=== PATIENT | male | born 1965 | race African-American/Black ===

== ENCOUNTER → 2017-09-11 | Outpatient (CLI) | payer OTHER ==
[~2017-09-11] MED LIST: IOHEXOL 180 MG/ML 10 ML VIAL.; methylPREDNISolone ACETATE 40 MG/ML VIAL.; methylPREDNISolone ACETATE 80 MG/ML VIAL.
== END | disposition home or self-care (01) ==
LOC: PNCL 08:31
DX: M51.16 Intervertebral disc disorders with radiculopathy, lumbar region (principal); M47.26 Other spondylosis with radiculopathy, lumbar region; M16.0 Bilateral primary osteoarthritis of hip; M17.0 Bilateral primary osteoarthritis of knee; I10 Essential (primary) hypertension; E78.00 Pure hypercholesterolemia, unspecified; Z96.641 Presence of right artificial hip joint; F17.200 Nicotine dependence, unspecified, uncomplicated; Z98.42 Cataract extraction status, left eye; Z98.41 Cataract extraction status, right eye; Z98.890 Other specified postprocedural states; Z86.73 Personal history of transient ischemic attack (TIA), and cerebral infarction without residual deficits; Z88.0 Allergy status to penicillin; Z82.49 Family history of ischemic heart disease and other diseases of the circulatory system; Z83.3 Family history of diabetes mellitus
CPT/HCPCS: 62323; J1030; J1040; Q9965

== ENCOUNTER 2017-10-06 10:56 | Day surgery (SDC) | payer OTHER ==
[~2017-10-06 10:56] MED LIST changes: +CLINDAMYCIN 900MG PREMIX 50 ML IV; -IOHEXOL 180 MG/ML 10 ML VIAL.; +LIDOCAINE 1% PF 2 ML VIAL. ID; +MORPHINE SULFATE 4 MG/ML DISP.SYRIN. IV; +ONDANSETRON PF 4 MG/2 ML VIAL. IV; +PROCHLORPERAZINE 10 MG/2 ML VIAL. IV; +fentaNYL PF VIAL 100 MCG/2 ML VIAL IV; -methylPREDNISolone ACETATE 40 MG/ML VIAL.; -methylPREDNISolone ACETATE 80 MG/ML VIAL.
[2017-10-06] MEDS: IV RINGERS,LACTATED 1000ML 1,000 ML IV (11:27)
[2017-10-06] MEDS ORDERED: MIDAZOLAM HCL/PF 2 MG/2 ML VIAL. (12:10)
[2017-10-06] MEDS ORDERED: LIDOCAINE 2% PF Vial for OR 5 ML VIAL. (12:10)
[2017-10-06] MEDS ORDERED: PROPOFOL 50 ML IV (12:10)
[2017-10-06] MEDS ORDERED: BUPIVACAINE-EPI 0.25%-1:200000 50 ML VIAL. (12:38)
[2017-10-06] MEDS: VANCOMYCIN 2 GM in IV 1/2 NORMAL SALINE 500 ML IV (12:45)
[2017-10-06] MEDS: BUPIVACAINE 0.25% 50 ML VIAL. (14:20)
[2017-10-06] MEDS ORDERED: HYDROcodone/APAP 7.5/325MG 1 TAB TABLET (15:28)
[2017-10-06] MEDS: HYDROcodone/APAP 7.5/325MG 1 TAB TABLET PO (15:31)
== END 2017-10-06 16:29 | disposition home or self-care (01) ==
LOC: SURG 10:56
DX: G56.01 Carpal tunnel syndrome, right upper limb (principal); E78.00 Pure hypercholesterolemia, unspecified; M16.0 Bilateral primary osteoarthritis of hip; I10 Essential (primary) hypertension; E66.9 Obesity, unspecified; Z96.643 Presence of artificial hip joint, bilateral; Z87.891 Personal history of nicotine dependence; Z98.42 Cataract extraction status, left eye; Z98.41 Cataract extraction status, right eye; Z83.3 Family history of diabetes mellitus; Z82.49 Family history of ischemic heart disease and other diseases of the circulatory system; Z82.5 Family history of asthma and other chronic lower respiratory diseases; M17.0 Bilateral primary osteoarthritis of knee
CPT/HCPCS: 64721; A7015; J2250; J2704; J3370; J3490

== ENCOUNTER 2019-08-16 13:51 | Inpatient (IN) | payer OTHER ==
[~2019-08-16] VITALS: Ht 177.8 cm; Wt 117.8 kg
[~2019-08-16 13:51] MED LIST changes: +AMIT25TA PO; +AMLO10TA4 PO; +ASPI325T8 PO; +CELE200C PO; -CLINDAMYCIN 900MG PREMIX 50 ML IV; +HYDR-2145 PO; +HYDR-3165 PO; -LIDOCAINE 1% PF 2 ML VIAL. ID; +LOSA100T14 PO; -MORPHINE SULFATE 4 MG/ML DISP.SYRIN. IV; +MV-M1TAB8 PO; +NAPR-683 PO; -ONDANSETRON PF 4 MG/2 ML VIAL. IV; +OXYC1TAB19 PO; -PROCHLORPERAZINE 10 MG/2 ML VIAL. IV; +SIMV10TA15 PO; +TRAM50TA PO; +WARF-31 PO; +WARF-78 PO; -fentaNYL PF VIAL 100 MCG/2 ML VIAL IV
--- NOTE | 2019-08-16 14:25 | PHYS DOC ---
Past Medical History Smoking Status: Former Smoker (JESSICA SILVESTRE APRN) General Adult EDM: Chief Complaint: SHORTNESS OF BREATH HPI: HPI: Patient is a 54 year old male who presents with states today began coughing and then became short of breath. He states he then felt a sharp pain in his mid sternal chest that is continuous. He rates his pain an 8 out of 10. Patient is a former smoker, had a stroke 28 years ago with no deficits, hypertension. (JESSICA SILVESTRE APRN) Review of Systems: Review of Systems: Respiratory: cough or shortness of breath. [] Cardiovascular: Midsternal chest pain or denies edema. [] (JESSICA SILVESTRE CUSTOMER OPERATIONS SPECIALIST) Heart Score: HEART Score for Chest Pain: HEART Score for Chest Pain Response (Comments) Value History Slighlty/Non-Suspicious 0 ECG Normal 0 Age >45 - < 65 1 Risk Factors 1 or 2 Risk Factors 1 Troponin < Normal Limit 0 Total 2 Risk Factors: Risk Factors: DM, Current or recent (<one month) smoker, HTN, HLP, family history of CAD, obesity. Risk Scores: Score 0 - 3: 2.5% MACE over next 6 weeks - Discharge Home Score 4 - 6: 20.3% MACE over next 6 weeks - Admit for Clinical Observation Score 7 - 10: 72.7% MACE over next 6 weeks - Early Invasive Strategies (JESSICA SILVESTRE APRN) Allergies: Allergies: Allergies Coded Allergies Type Severity Reaction Last Updated Verified Penicillins Allergy Intermediate hives 10/06/17 Yes (JESSICA SILVESTRE APRN) Physical Exam: PE: Constitutional: Well developed, well nourished, no acute distress, non-toxic appearance. [] HENT: Normocephalic, atraumatic, bilateral external ears normal, oropharynx moist, no oral exudates, nose normal. [] Eyes: PERRLA, EOMI, conjunctiva normal, no discharge. [] Neck: Normal range of motion, no tenderness, supple, no stridor. [] Cardiovascular:Heart rate regular rhythm, no murmur [] Lungs & Thorax: Bilateral breath sounds clear on left and diminished on Right to auscultation [] Abdomen: Bowel sounds normal, soft, no tenderness, no masses, no pulsatile masses. [] Skin: Warm, dry, no erythema, no rash. [] Back: No tenderness, no CVA tenderness. [] Extremities: No tenderness, no cyanosis, no clubbing, ROM intact, no edema. [] Neurologic: Alert and oriented X 3, normal motor function, normal sensory function, no focal deficits noted. [] Psychologic: Affect normal, judgement normal, mood normal. Normal physical exam [] (JESSICA SILVESTRE APRN) EKG: EK and read by Dr Garcia Sinus tachycardia with no STEMI [] (JESSICA SILVESTRE APRN) Radiology/Procedures: Radiology/Procedures: [] Impression: [facility] [address] [place], [place] [id number] IMAGING REPORT Signed PATIENT: TONY COHEN ACCOUNT: [id number] : 1965 LOCATION: ER AGE: 54 SEX: M EXAM STATUS: REG ER ORD. PHYSICIAN: JESSICA SILVESTRE APRN REASON: soa PROCEDURE: PORTABLE CHEST 1V Single view of the chest. 08/16/2019 2:04 PM Indication: Shortness of air Comparison: Chest radiograph August 27, 2015 Findings: There is a large right-sided pneumothorax is total collapse of the right lung. Possible mild leftward mediastinal shift seen. No pleural effusion is seen. Heart size is normal. Impression: Large right pneumothorax. Follow-up radiograph following chest tube placement recommended Critical result called to the ER provider at 12:40 PM Electronically signed by: Massimo Tim MD (08/16/2019 2:41 PM) [id number] DICTATED and SIGNED BY: MASSIMO TIM MD DATE: 08/16/19 1441 [facility] [address] [place], [place] [id number] IMAGING REPORT Signed PATIENT: TONY COHEN ACCOUNT: [id number] : 1965 LOCATION: ER AGE: 54 SEX: M EXAM STATUS: REG ER ORD. PHYSICIAN: GARCIA,PETER T DO REASON: chest tube placement PROCEDURE: CHEST AP ONLY CHEST AP ONLY History: Pneumothorax. Chest tube placement. COMPARISON: 08/16/2019. FINDINGS: There has been reexpansion of the right lung with only a very small residual right apical pneumothorax. Minimal lucency at the right lung base, at least raising the question of a very small subpulmonic component of pneumothorax as well. Mild right lung base markings. Small caliber right chest tube is seen in the right lower chest laterally. Aorta is mildly ectatic/tortuous. Heart size not enlarged. No evidence of large effusion or consolidating airspace disease. IMPRESSION: 1. Reexpansion of the right lung with only a small residual right apical pneumothorax, and possible component of very small subpulmonic component of pneumothorax. Small caliber chest tube identified in the right lower lateral chest. 2. Mild markings at right lung base, most likely atelectasis. Electronically signed by: Kb Cummings MD (08/16/2019 3:34 PM) [facility] DICTATED and SIGNED BY: KB CUMMINGS MD DATE: 08/16/19 1534 (JESSICA SILVESTRE APRN) Radiology/Procedures: Indication: right side pneumothorax Consent: The patient provided consent for this procedure. Procedure: The patient was placed in an appropriate position. Local anesthesia over the insertion site was 1% lidocaine, 20 ml. An incision was made .5 cm at the right mid auxillary line at 5th intercostal space. Blunt dissection up and over the rib was performed until access was obtained into the pleural cavity. A 7 Liberian , 16 cm COOK CATHETER chest tube was placed and connected to PLEURIVAC. The tube was sutured in place and the site was covered with an occlusive dressing. All connections were banded. Breath sounds after the procedure were good equal both sides. A chest x-ray was obtained to evaluate placement, confirmed chest tube placement and reexpansion of the right lung. The patient tolerated the procedure well. Complications:none (EMELYN GARCIA DO) Course & Med Decision Making: Course & Med Decision Making Pertinent Labs and Imaging studies reviewed. (See chart for details) Alert and oriented. Speaks in full clear sentences. Patient is afebrile. He denies having a mucus producing cough. No extremity edema. Skin pink warm and dry. Ambulatory with a steady gait. Patient states the shortness of breath is more so when he is up and walking. Patient states office symptoms started today. Patient denies being around anybody else is been sick or traveling. His lung sounds are clear throughout but he is a little bit more diminished on the right upper lung lobes than on the left. Impression: Large right pneumothorax. Follow-up radiograph following chest tube placement recommended Dr. Garcia has placed a chest tube with a follow up xray done. IMPRESSION: 1. Reexpansion of the right lung with only a small residual right apical pneumothorax, and possible component of very small subpulmonic component of pneumothorax. Small caliber chest tube identified in the right lower lateral chest. 2. Mild markings at right lung base, most likely atelectasis. Patient to be admitted by hospitalists. Clay has spoken to Dr Valladares. [] (JESSICA SILVESTRE APRN) Dragon Disclaimer: Dragon Disclaimer: This electronic medical record was generated, in whole or in part, using a voice recognition dictation system. (JESSICA SILVESTRE APRN) Departure Departure Impression: Primary Impression: Pneumothorax on right Disposition: 09 ADMITTED INPATIENT Admitting Physician: CAROL (JESSICA SILVESTRE APRN) Condition: STABLE Referrals: DUSTIN MAHONEY MD (PCP) JESSICA SILVESTRE APRN Aug 16, 2019 14:25 EMELYN GARCIA DO Aug 16, 2019 16:16
--- NOTE | 2019-08-16 14:29 | EKG ---
[facility] [address] [place] [address] Test Date: 2019-08-16 Test Time: 14:11:59 Pat Name: TONY COHEN Department: Room: Gender: M Snow Maker: : 1965 Requested By: JESSICA SILVESTRE Order Number: [id number] Reading MD: Malcom Morrison MD Measurements Intervals [place] Rate: 112 P: 93 NV: 138 QRS: 89 QRSD: 106 T: 62 QT: 326 QTc: 447 Interpretive Statements SINUS TACHYCARDIA INCOMPLETE RIGHT BUNDLE BRANCH BLOCK Electronically Signed On 08-16-2019 14:41:01 CDT by Malcom Morrison MD
--- NOTE | 2019-08-16 14:44 | RAD ---
Single view of the chest. 08/16/2019 2:04 PM Indication: Shortness of air Comparison: Chest radiograph August 27, 2015 Findings: There is a large right-sided pneumothorax is total collapse of the right lung. Possible mild leftward mediastinal shift seen. No pleural effusion is seen. Heart size is normal. Impression: Large right pneumothorax. Follow-up radiograph following chest tube placement recommended Critical result called to the ER provider at 12:40 PM Electronically signed by: Massimo Isidro MD (08/16/2019 2:41 PM) [id number]
[2019-08-16] MEDS ORDERED: LIDOCAINE 1% PF 30 ML VIAL. INJ ONE (14:45)
[2019-08-16 15:05] LABS: INFLUENZA A PATIENT NEGATIVE (NEGATIVE); INFLUENZA B PATIENT NEGATIVE (NEGATIVE)
[2019-08-16 15:07] LABS: BASO % 1 % (0-3); EOS # 0.3 x10^3/uL (0.0-0.7); EOS % 5 % (0-3); HEMATOCRIT 46.8 % (39.0-53.0); HEMOGLOBIN 15.9 g/dL (13.0-17.5); LYMPH # 1.5 x10^3/uL (1.0-4.8); LYMPH % 27 % (24-48); MEAN CORPUSCULAR HEMOGLOBIN 30 pg (25-35); MEAN CORPUSCULAR HGB CONC 34 g/dL (31-37); MEAN CORPUSCULAR VOLUME 88 fL (79-100); MONO # 0.7 x10^3/uL (0.0-1.1); MONO % 12 % (0-9); NEUT % 55 % (31-73); PLATELET COUNT 263 x10^3/uL (140-400); RED BLOOD COUNT 5.35 x10^6/uL (4.30-5.70); RED CELL DISTRIBUTION WIDTH 14.7 % (11.5-14.5); WHITE BLOOD COUNT 5.5 x10^3/uL (4.0-11.0)
[2019-08-16 15:28] LABS: BILIRUBIN,URINE NEGATIVE (NEG); COLOR,URINE YELLOW; NITRITE,URINE NEGATIVE (NEG); PH,URINE 7.5 (<5.0-8.0); PROTEIN,URINE NEGATIVE (NEG-TRACE); UROBILINOGEN,URINE 0.2 mg/dL (0.2 mg/dL)
[2019-08-16 15:28] LABS: CALCIUM 9.4 mg/dL (8.5-10.1); GFR 94.2
[2019-08-16 15:33] LABS: ALBUMIN 4.2 g/dL (3.4-5.0); ALBUMIN/GLOBULIN RATIO 1.1 (1.0-1.7); TOTAL BILIRUBIN 0.5 mg/dL (0.2-1.0); TOTAL PROTEIN 8.1 g/dL (6.4-8.2)
--- NOTE | 2019-08-16 15:36 | RAD ---
CHEST AP ONLY History: Pneumothorax. Chest tube placement. COMPARISON: 08/16/2019. FINDINGS: There has been reexpansion of the right lung with only a very small residual right apical pneumothorax. Minimal lucency at the right lung base, at least raising the question of a very small subpulmonic component of pneumothorax as well. Mild right lung base markings. Small caliber right chest tube is seen in the right lower chest laterally. Aorta is mildly ectatic/tortuous. Heart size not enlarged. No evidence of large effusion or consolidating airspace disease. IMPRESSION: 1. Reexpansion of the right lung with only a small residual right apical pneumothorax, and possible component of very small subpulmonic component of pneumothorax. Small caliber chest tube identified in the right lower lateral chest. 2. Mild markings at right lung base, most likely atelectasis. Electronically signed by: bK Cummings MD (08/16/2019 3:34 PM) [facility]
[2019-08-16 15:39] LABS: CLARITY,URINE CLEAR
[2019-08-16 15:40] LABS: RBC,URINE 0 /HPF (0-2); WBC,URINE 0 /HPF (0-4)
[2019-08-16 15:41] LABS: BACTERIA,URINE 0 /HPF (0-FEW); SQUAMOUS EPITHELIAL CELL,UR OCC /LPF
[2019-08-16] MEDS ORDERED: ACETAMINOPHEN 325 MG TABLET. PO PRN (16:15)
[2019-08-16] MEDS ORDERED: fentaNYL PF VIAL 100 MCG/2 ML VIAL IV PRN (16:15)
[2019-08-16] MEDS ORDERED: ONDANSETRON PF 4 MG/2 ML VIAL. IV PRN (16:15)
[2019-08-16 17:40] VITALS: BP 147/94
[2019-08-16 19:00] VITALS: BP 137/85
--- NOTE | 2019-08-16 19:15 | NUR ---
Pt in bed assessment completed vss poc explained pt denied pain during time of assessment, poc explained call light in reach will resume care and continue to monitor pt. Call light in reach.
[2019-08-16] MEDS ORDERED: BRIN8DRO (19:29)
[2019-08-16] MEDS ORDERED: TIMO5DRO5 (19:29)
[2019-08-16] MEDS ORDERED: LATA2.5D3 (19:29)
[2019-08-16] MEDS ORDERED: HYDR25TA10 (19:29)
--- NOTE | 2019-08-16 21:19 | NUR ---
here to see pt orders received to restart home meds
[2019-08-16] MEDS ORDERED: ASPIRIN 325 MG TABLET PO PRN (21:30)
--- NOTE | 2019-08-16 21:34 | PDOC1 ---
History and Physical Date of Admission Date of Admission August 16, 2019 Identification/Chief Complaint Chief Complaint My chest hurts Source Source: Patient History of Present Illness History of Present Illness Patient is a 54-year-old gentleman with past medical history of hypertension and previous history of smoking who was in his usual state of health until today when he had a coughing spell with no history of recent viral infections he denies any fever no cough sputum production unfortunately he suffered this coughing spell for no apparent reason shortly after he developed right chest discomfort. The patient could not take a deep breath and his pain was quite exquisite reason he decided to come to the emergency department for further eval uation and treatment. He describes the pain as a sharp sensation 10 out of 10 intensity with no radiation to the back nor the jaw the patient did not associate this pain with exertion and there was no worsening or alleviating factors associated with it. The patient has been in his usual state of health and has not been in contact with sick people, he has not traveled outside the area he denies dietary transgressions no history of GERD no sputum production was reported either. He was found to have a pneumothorax in the emergency department and he had a chest tube placed immediately. This has relieved his symptoms and he seems to be in no acute and apparent respiratory distress at the time my evaluation. Patient was provided reassurance and the plan of care was explained detail to the best of my abilities. Past Medical History Cardiovascular: HTN Pulmonary: COPD Current Problem List Problem List Problems Medical Problems: (1) Pneumothorax on right Status: Acute Current Medications Current Medications Current Medications Medications (Trade) Dose Ordered Sig/Nicolás Start Time Stop Time Status Last Admin Dose Admin Acetaminophen (Tylenol) 650 mg PRN Q4HRS PRN 08/16/19 16:15 08/17/19 16:14 Amlodipine Besylate (Norvasc) 10 mg DAILY 08/17/19 09:00 UNV Aspirin (Jodi Aspirin) 650 mg Q12H PRN 08/16/19 21:30 UNV Fentanyl Citrate (Fentanyl 2ml Vial) 50 mcg PRN Q1HR PRN 08/16/19 16:15 08/17/19 16:14 Hydrochlorothiazide (Hydrodiuril) 25 mg DAILY 08/17/19 09:00 UNV Ketorolac Tromethamine (Toradol 15mg Vial) 15 mg PRN Q6HRS PRN 08/16/19 21:30 08/21/19 21:29 UNV Latanoprost (Xalatan) 2 drop HS 08/17/19 21:00 UNV Lidocaine HCl (Xylocaine 1% Pf 30ml Vial) 30 ml 1X ONCE 08/16/19 14:45 08/16/19 14:46 DC 08/16/19 15:20 30 ML Non-Formulary Medication (Brinzolamide/ Brimonid Tart (Simbrinza 1%-0.2% Eye Drops)) 0.2 % BID 08/17/19 09:00 UNV Non-Formulary Medication (Losartan Potassium ) 100 mg DAILY 08/17/19 09:00 UNV Ondansetron HCl (Zofran) 4 mg PRN Q8HRS PRN 08/16/19 16:15 08/17/19 16:14 Timolol Maleate (Timoptic 0.5% Ophth) 5 drop BID 08/17/19 09:00 UNV Allergies Allergies Allergies Coded Allergies Type Severity Reaction Last Updated Verified Penicillins Allergy Intermediate hives 10/06/17 Yes ROS Review of System CONSTITUTIONAL: No fever or chills EYES: No recent changes SKIN: No rash or itching CARDIOVASCULAR: No chest pain, syncope, palpitations, or edema RESPIRATORY: No SOB or cough GASTROINTESTINAL: No nausea, vomiting or abdominal pain NEUROLOGICAL: No headaches or weakness ENDOCRINE: No cold or heat intolerance GENITOURINARY: No urgency or frequency of urination MUSCULOSKELETAL: No back pain or joint pain LYMPHATICS: No enlarged lymph nodes PSYCHIATRIC: No anxiety or depression Physical Exam Physical Exam GEN.: No apparent distress. Alert and oriented. HEENT: Head is normocephalic, atraumatic NECK: Supple. LUNGS: Clear to auscultation. HEART: RRR, S1, S2 present. Peripheral pulses intact ABDOMEN: Soft, nontender. Positive bowel sounds. EXTREMITIES: Without any cyanosis. NEUROLOGIC: Normal speech, normal tone PSYCHIATRIC: Normal affect, normal mood. SKIN: No ulcerations Vitals Vitals Vital Signs Date Time Temp Pulse Resp B/P (MAP) Pulse Ox O2 Delivery O2 Flow Rate FiO2 08/16/19 19:00 98.1 83 16 137/85 (102) 99 Nasal Cannula 2.0 98.1 Labs Labs Laboratory Tests Test 08/16/19 14:38 08/16/19 14:45 08/16/19 15:20 Influenza Type A Antigen Negative (NEGATIVE) Influenza Type B Antigen Negative (NEGATIVE) White Blood Count 5.5 x10^3/uL (4.0-11.0) Red Blood Count 5.35 x10^6/uL (4.30-5.70) Hemoglobin 15.9 g/dL (13.0-17.5) Hematocrit 46.8 % (39.0-53.0) Mean Corpuscular Volume 88 fL (79-100) Mean Corpuscular Hemoglobin 30 pg (25-35) Mean Corpuscular Hemoglobin Concent 34 g/dL (31-37) Red Cell Distribution Width 14.7 % (11.5-14.5) Platelet Count 263 x10^3/uL (140-400) Neutrophils (%) (Auto) 55 % (31-73) Lymphocytes (%) (Auto) 27 % (24-48) Monocytes (%) (Auto) 12 % (0-9) Eosinophils (%) (Auto) 5 % (0-3) Basophils (%) (Auto) 1 % (0-3) Neutrophils # (Auto) 3.0 x10^3/uL (1.8-7.7) Lymphocytes # (Auto) 1.5 x10^3/uL (1.0-4.8) Monocytes # (Auto) 0.7 x10^3/uL (0.0-1.1) Eosinophils # (Auto) 0.3 x10^3/uL (0.0-0.7) Basophils # (Auto) 0.0 x10^3/uL (0.0-0.2) Sodium Level 135 mmol/L (136-145) Potassium Level 4.0 mmol/L (3.5-5.1) Chloride Level 98 mmol/L (98-107) Carbon Dioxide Level 28 mmol/L (21-32) Anion Gap 9 (6-14) Blood Urea Nitrogen 12 mg/dL (8-26) Creatinine 1.0 mg/dL (0.7-1.3) Estimated GFR (Cockcroft-Gault) 94.2 BUN/Creatinine Ratio 12 (6-20) Glucose Level 108 mg/dL (70-99) Calcium Level 9.4 mg/dL (8.5-10.1) Total Bilirubin 0.5 mg/dL (0.2-1.0) Aspartate Amino Transf (AST/SGOT) 27 U/L (15-37) Alanine Aminotransferase (ALT/SGPT) 35 U/L (16-63) Alkaline Phosphatase 59 U/L (46-116) Troponin I Quantitative < 0.017 ng/mL (0.000-0.055) HK-Hvn-L-Type Natriuretic Peptide 10 pg/mL (0-124) Total Protein 8.1 g/dL (6.4-8.2) Albumin 4.2 g/dL (3.4-5.0) Albumin/Globulin Ratio 1.1 (1.0-1.7) Urine Collection Type Unknown Urine Color Yellow Urine Clarity Clear Urine pH 7.5 (<5.0-8.0) Urine Specific Kohler 1.010 (1.000-1.030) Urine Protein Negative mg/dL (NEG-TRACE) Urine Glucose (UA) Negative mg/dL (NEG) Urine Ketones (Stick) Negative mg/dL (NEG) Urine Blood Negative (NEG) Urine Nitrite Negative (NEG) Urine Bilirubin Negative (NEG) Urine Urobilinogen Dipstick 0.2 mg/dL (0.2 mg/dL) Urine Leukocyte Esterase Negative (NEG) Urine RBC 0 /HPF (0-2) Urine WBC 0 /HPF (0-4) Urine Squamous Epithelial Cells Occ /LPF Urine Bacteria 0 /HPF (0-FEW) Laboratory Tests Test 08/16/19 14:38 08/16/19 14:45 08/16/19 15:20 Influenza Type A Antigen Negative (NEGATIVE) Influenza Type B Antigen Negative (NEGATIVE) White Blood Count 5.5 x10^3/uL (4.0-11.0) Red Blood Count 5.35 x10^6/uL (4.30-5.70) Hemoglobin 15.9 g/dL (13.0-17.5) Hematocrit 46.8 % (39.0-53.0) Mean Corpuscular Volume 88 fL (79-100) Mean Corpuscular Hemoglobin 30 pg (25-35) Mean Corpuscular Hemoglobin Concent 34 g/dL (31-37) Red Cell Distribution Width 14.7 % (11.5-14.5) Platelet Count 263 x10^3/uL (140-400) Neutrophils (%) (Auto) 55 % (31-73) Lymphocytes (%) (Auto) 27 % (24-48) Monocytes (%) (Auto) 12 % (0-9) Eosinophils (%) (Auto) 5 % (0-3) Basophils (%) (Auto) 1 % (0-3) Neutrophils # (Auto) 3.0 x10^3/uL (1.8-7.7) Lymphocytes # (Auto) 1.5 x10^3/uL (1.0-4.8) Monocytes # (Auto) 0.7 x10^3/uL (0.0-1.1) Eosinophils # (Auto) 0.3 x10^3/uL (0.0-0.7) Basophils # (Auto) 0.0 x10^3/uL (0.0-0.2) Sodium Level 135 mmol/L (136-145) Potassium Level 4.0 mmol/L (3.5-5.1) Chloride Level 98 mmol/L (98-107) Carbon Dioxide Level 28 mmol/L (21-32) Anion Gap 9 (6-14) Blood Urea Nitrogen 12 mg/dL (8-26) Creatinine 1.0 mg/dL (0.7-1.3) Estimated GFR (Cockcroft-Gault) 94.2 BUN/Creatinine Ratio 12 (6-20) Glucose Level 108 mg/dL (70-99) Calcium Level 9.4 mg/dL (8.5-10.1) Total Bilirubin 0.5 mg/dL (0.2-1.0) Aspartate Amino Transf (AST/SGOT) 27 U/L (15-37) Alanine Aminotransferase (ALT/SGPT) 35 U/L (16-63) Alkaline Phosphatase 59 U/L (46-116) Troponin I Quantitative < 0.017 ng/mL (0.000-0.055) SV-Fxr-L-Type Natriuretic Peptide 10 pg/mL (0-124) Total Protein 8.1 g/dL (6.4-8.2) Albumin 4.2 g/dL (3.4-5.0) Albumin/Globulin Ratio 1.1 (1.0-1.7) Urine Collection Type Unknown Urine Color Yellow Urine Clarity Clear Urine pH 7.5 (<5.0-8.0) Urine Specific Kohler 1.010 (1.000-1.030) Urine Protein Negative mg/dL (NEG-TRACE) Urine Glucose (UA) Negative mg/dL (NEG) Urine Ketones (Stick) Negative mg/dL (NEG) Urine Blood Negative (NEG) Urine Nitrite Negative (NEG) Urine Bilirubin Negative (NEG) Urine Urobilinogen Dipstick 0.2 mg/dL (0.2 mg/dL) Urine Leukocyte Esterase Negative (NEG) Urine RBC 0 /HPF (0-2) Urine WBC 0 /HPF (0-4) Urine Squamous Epithelial Cells Occ /LPF Urine Bacteria 0 /HPF (0-FEW) Images Images [facility] [address] [place] [address] IMAGING REPORT Signed PATIENT: TONY COHEN ACCOUNT: [id number] : 1965 LOCATION: ER AGE: 54 SEX: M EXAM STATUS: REG ER ORD. PHYSICIAN: JESSICA SILVESTRE APRN REASON: soa PROCEDURE: PORTABLE CHEST 1V Single view of the chest. 08/16/2019 2:04 PM Indication: Shortness of air Comparison: Chest radiograph August 27, 2015 Findings: There is a large right-sided pneumothorax is total collapse of the right lung. Possible mild leftward mediastinal shift seen. No pleural effusion is seen. Heart size is normal. Impression: Large right pneumothorax. Follow-up radiograph following chest tube placement recommended Critical result called to the ER provider at 12:40 PM Electronically signed by: Massimo Tim MD (08/16/2019 2:41 PM) [id number] DICTATED and SIGNED BY: MASSIMO TIM MD DATE: 08/16/19 1441 [facility] [address] [place] [address] IMAGING REPORT Signed PATIENT: TONY COHEN ACCOUNT: [id number] : 1965 LOCATION: ER AGE: 54 SEX: M EXAM STATUS: REG ER ORD. PHYSICIAN: EMELYN GARCIA DO REASON: chest tube placement PROCEDURE: CHEST AP ONLY CHEST AP ONLY History: Pneumothorax. Chest tube placement. COMPARISON: 08/16/2019. FINDINGS: There has been reexpansion of the right lung with only a very small residual right apical pneumothorax. Minimal lucency at the right lung base, at least raising the question of a very small subpulmonic component of pneumothorax as well. Mild right lung base markings. Small caliber right chest tube is seen in the right lower chest laterally. Aorta is mildly ectatic/tortuous. Heart size not enlarged. No evidence of large effusion or consolidating airspace disease. IMPRESSION: 1. Reexpansion of the right lung with only a small residual right apical pneumothorax, and possible component of very small subpulmonic component of pneumothorax. Small caliber chest tube identified in the right lower lateral chest. 2. Mild markings at right lung base, most likely atelectasis. Electronically signed by: Kb Cummings MD (08/16/2019 3:34 PM) [facility] VTE Prophylaxis Ordered VTE Prophylaxis Devices: Yes VTE Pharmacological Prophylaxi: No Assessment/Plan Assessment/Plan Spontaneous pneumothorax Essential hypertension History of tobacco abuse COPD? Plan: Continue with chest tube management Resume home medication Pulmonary underwriting consultant for tube management in the a.m. Further recommendations based on the clinical course DVT prophylaxis with CHARLES Grajeda MD Aug 16, 2019 21:34
[2019-08-16 22:12] VITALS: BP 151/85
[2019-08-16] MEDS: TIMOLOL 0.5% OPHTH SOLUTION 5ML BOTTLE. OU SCH (22:13)
[2019-08-16] MEDS: LATANOPROST 0.005% OPHTH SOLUTION 2.5ML BOTTLE. OU SCH (22:14)
[2019-08-17] MEDS: KETOROLAC 15 MG/ML VIAL. IVP PRN (00:53)
[2019-08-17 03:11] VITALS: BP 135/73
[2019-08-17 07:00] VITALS: BP 134/83
[2019-08-17] MEDS: hydroCHLOROthiazide 25 MG TABLET PO SCH (09:08)
[2019-08-17] MEDS: amLODIPine BESYLATE 10 MG TABLET PO SCH (09:08)
[2019-08-17] MEDS: TIMOLOL 0.5% OPHTH SOLUTION 5ML BOTTLE. OU SCH ×2 (09:09→21:38)
[2019-08-17] MEDS: LOSARTAN POTASSIUM 50 MG TABLET. PO SCH (09:14)
[2019-08-17] MEDS: BRIMONIDINE 0.2% OPHTH SOLUTION 5ML BOTTLE. OU SCH ×2 (10:17→21:36)
[2019-08-17 10:55] VITALS: BP 129/81
--- NOTE | 2019-08-17 14:19 | NUR ---
SS following for discharge planning. SS reviewed pt chart and discussed with RN. Pt is from home and is currently requiring oxygen. SS will continue to follow for discharge planning.
[2019-08-17 15:00] VITALS: BP 122/74
--- NOTE | 2019-08-17 15:10 | RAD ---
EXAM: Chest, single view. HISTORY: Pneumothorax. COMPARISON: 08/16/2019. FINDINGS: A frontal view of the chest obtained. There has been no significant change in a small right apical pneumothorax. There is a thoracostomy tube overlying the right mid thorax, unchanged in position. No pleural effusion is seen. There is no consolidation. The heart is normal in size. IMPRESSION: No significant change in a small right pneumothorax status post pleural catheter placement. Electronically signed by: Acacia Miller MD (08/17/2019 1:29 PM) [id number]
--- NOTE | 2019-08-17 16:09 | PDOC ---
PULMONARY PROGRESS NOTES Vitals Vital Signs Date Time Temp Pulse Resp B/P (MAP) Pulse Ox O2 Delivery O2 Flow Rate FiO2 08/17/19 15:00 97.7 68 18 122/74 (90) 96 Nasal Cannula 2.0 97.7 Labs Laboratory Tests Test 08/16/19 14:38 08/16/19 14:45 08/16/19 15:20 Influenza Type A Antigen Negative (NEGATIVE) Influenza Type B Antigen Negative (NEGATIVE) White Blood Count 5.5 x10^3/uL (4.0-11.0) Red Blood Count 5.35 x10^6/uL (4.30-5.70) Hemoglobin 15.9 g/dL (13.0-17.5) Hematocrit 46.8 % (39.0-53.0) Mean Corpuscular Volume 88 fL (79-100) Mean Corpuscular Hemoglobin 30 pg (25-35) Mean Corpuscular Hemoglobin Concent 34 g/dL (31-37) Red Cell Distribution Width 14.7 % (11.5-14.5) Platelet Count 263 x10^3/uL (140-400) Neutrophils (%) (Auto) 55 % (31-73) Lymphocytes (%) (Auto) 27 % (24-48) Monocytes (%) (Auto) 12 % (0-9) Eosinophils (%) (Auto) 5 % (0-3) Basophils (%) (Auto) 1 % (0-3) Neutrophils # (Auto) 3.0 x10^3/uL (1.8-7.7) Lymphocytes # (Auto) 1.5 x10^3/uL (1.0-4.8) Monocytes # (Auto) 0.7 x10^3/uL (0.0-1.1) Eosinophils # (Auto) 0.3 x10^3/uL (0.0-0.7) Basophils # (Auto) 0.0 x10^3/uL (0.0-0.2) Sodium Level 135 mmol/L (136-145) Potassium Level 4.0 mmol/L (3.5-5.1) Chloride Level 98 mmol/L (98-107) Carbon Dioxide Level 28 mmol/L (21-32) Anion Gap 9 (6-14) Blood Urea Nitrogen 12 mg/dL (8-26) Creatinine 1.0 mg/dL (0.7-1.3) Estimated GFR (Cockcroft-Gault) 94.2 BUN/Creatinine Ratio 12 (6-20) Glucose Level 108 mg/dL (70-99) Calcium Level 9.4 mg/dL (8.5-10.1) Total Bilirubin 0.5 mg/dL (0.2-1.0) Aspartate Amino Transf (AST/SGOT) 27 U/L (15-37) Alanine Aminotransferase (ALT/SGPT) 35 U/L (16-63) Alkaline Phosphatase 59 U/L (46-116) Troponin I Quantitative < 0.017 ng/mL (0.000-0.055) OW-Zju-[id number]-Type Natriuretic Peptide 10 pg/mL (0-124) Total Protein 8.1 g/dL (6.4-8.2) Albumin 4.2 g/dL (3.4-5.0) Albumin/Globulin Ratio 1.1 (1.0-1.7) Urine Collection Type Unknown Urine Color Yellow Urine Clarity Clear Urine pH 7.5 (<5.0-8.0) Urine Specific [place] 1.010 (1.000-1.030) Urine Protein Negative mg/dL (NEG-TRACE) Urine Glucose (UA) Negative mg/dL (NEG) Urine Ketones (Stick) Negative mg/dL (NEG) Urine Blood Negative (NEG) Urine Nitrite Negative (NEG) Urine Bilirubin Negative (NEG) Urine Urobilinogen Dipstick 0.2 mg/dL (0.2 mg/dL) Urine Leukocyte Esterase Negative (NEG) Urine RBC 0 /HPF (0-2) Urine WBC 0 /HPF (0-4) Urine Squamous Epithelial Cells Occ /LPF Urine Bacteria 0 /HPF (0-FEW) Medications Active Scripts Medications Dose Route/Sig Max Daily Dose Days Date Category Dose Instructions Timolol Maleate 5 Ml Drops 5 BID 08/16/19 Reported Simbrinza 1%-0.2% Eye Drops (Brinzolamide/Brimonid Tart) 8 Ml Drops.susp 0.2 BID 08/16/19 Reported Hydrochlorothiazide 25 Mg Tablet 25 DAILY 08/16/19 Reported Latanoprost 2.5 Ml Drops 2.5 HS 08/16/19 Reported Aspirin 325 Mg Tablet 650 Mg PO PRN 09/11/17 Reported Losartan Potassium 100 Mg Tablet 100 Mg PO DAILY 05/02/13 Reported LAST DOSE GIVEN: DATE: 09/14/15 TIME: 09 AM NEXT DOSE DUE: DATE: 09/15/15 TIME: 09 AM Norvasc (Amlodipine Besylate) 10 Mg Tablet 10 Mg PO DAILY 05/02/13 Reported LAST DOSE GIVEN: DATE: 09/14/15 TIME: 09 AM NEXT DOSE DUE: DATE: 09/15/15 TIME: 09 AM Impression . FULL NOTE DICTATED PTX WILL CONTINUE THE SAME, air leak present on wall suction Repeat chest x-ray in the [facility] CHRISSIE VARELA MD Aug 17, 2019 16:09
--- NOTE | 2019-08-17 16:33 | PDOC ---
PROGRESS NOTES Chief Complaint Chief Complaint Spontaneous pneumothorax Essential hypertension History of tobacco abuse COPD? Plan: Resume home medication Pulmonary life skills consultant for tube management repeat x ray in am still has air leak Further recommendations based on the clinical course DVT prophylaxis with SCDs History of Present Illness History of Present Illness No acute events reported overnight, case discussed with nursing staff patient in no acute distress no complaints during my visit Vitals Vitals Vital Signs Date Time Temp Pulse Resp B/P (MAP) Pulse Ox O2 Delivery O2 Flow Rate FiO2 08/17/19 15:00 97.7 68 18 122/74 (90) 96 Nasal Cannula 2.0 97.7 Physical Exam Physical Exam GEN.: No apparent distress. Alert and oriented. HEENT: Head is normocephalic, atraumatic NECK: Supple. LUNGS: Clear to auscultation. HEART: RRR, S1, S2 present. Peripheral pulses intact ABDOMEN: Soft, nontender. Positive bowel sounds. EXTREMITIES: Without any cyanosis. NEUROLOGIC: Normal speech, normal tone PSYCHIATRIC: Normal affect, normal mood. SKIN: No ulcerations Assessment and Plan Assessmemt and Plan Problems Medical Problems: (1) Pneumothorax on right Status: Acute Comment Review of Relevant I have reviewed the following items kirsten (where applicable) has been applied. Labs Laboratory Tests Test 08/16/19 14:38 08/16/19 14:45 08/16/19 15:20 Influenza Type A Antigen Negative (NEGATIVE) Influenza Type B Antigen Negative (NEGATIVE) White Blood Count 5.5 x10^3/uL (4.0-11.0) Red Blood Count 5.35 x10^6/uL (4.30-5.70) Hemoglobin 15.9 g/dL (13.0-17.5) Hematocrit 46.8 % (39.0-53.0) Mean Corpuscular Volume 88 fL (79-100) Mean Corpuscular Hemoglobin 30 pg (25-35) Mean Corpuscular Hemoglobin Concent 34 g/dL (31-37) Red Cell Distribution Width 14.7 % (11.5-14.5) Platelet Count 263 x10^3/uL (140-400) Neutrophils (%) (Auto) 55 % (31-73) Lymphocytes (%) (Auto) 27 % (24-48) Monocytes (%) (Auto) 12 % (0-9) Eosinophils (%) (Auto) 5 % (0-3) Basophils (%) (Auto) 1 % (0-3) Neutrophils # (Auto) 3.0 x10^3/uL (1.8-7.7) Lymphocytes # (Auto) 1.5 x10^3/uL (1.0-4.8) Monocytes # (Auto) 0.7 x10^3/uL (0.0-1.1) Eosinophils # (Auto) 0.3 x10^3/uL (0.0-0.7) Basophils # (Auto) 0.0 x10^3/uL (0.0-0.2) Sodium Level 135 mmol/L (136-145) Potassium Level 4.0 mmol/L (3.5-5.1) Chloride Level 98 mmol/L (98-107) Carbon Dioxide Level 28 mmol/L (21-32) Anion Gap 9 (6-14) Blood Urea Nitrogen 12 mg/dL (8-26) Creatinine 1.0 mg/dL (0.7-1.3) Estimated GFR (Cockcroft-Gault) 94.2 BUN/Creatinine Ratio 12 (6-20) Glucose Level 108 mg/dL (70-99) Calcium Level 9.4 mg/dL (8.5-10.1) Total Bilirubin 0.5 mg/dL (0.2-1.0) Aspartate Amino Transf (AST/SGOT) 27 U/L (15-37) Alanine Aminotransferase (ALT/SGPT) 35 U/L (16-63) Alkaline Phosphatase 59 U/L (46-116) Troponin I Quantitative < 0.017 ng/mL (0.000-0.055) FI-[id number]-Type Natriuretic Peptide 10 pg/mL (0-124) Total Protein 8.1 g/dL (6.4-8.2) Albumin 4.2 g/dL (3.4-5.0) Albumin/Globulin Ratio 1.1 (1.0-1.7) Urine Collection Type Unknown Urine Color Yellow Urine Clarity Clear Urine pH 7.5 (<5.0-8.0) Urine Specific [place] 1.010 (1.000-1.030) Urine Protein Negative mg/dL (NEG-TRACE) Urine Glucose (UA) Negative mg/dL (NEG) Urine Ketones (Stick) Negative mg/dL (NEG) Urine Blood Negative (NEG) Urine Nitrite Negative (NEG) Urine Bilirubin Negative (NEG) Urine Urobilinogen Dipstick 0.2 mg/dL (0.2 mg/dL) Urine Leukocyte Esterase Negative (NEG) Urine RBC 0 /HPF (0-2) Urine WBC 0 /HPF (0-4) Urine Squamous Epithelial Cells Occ /LPF Urine Bacteria 0 /HPF (0-FEW) Medications Current Medications Lidocaine HCl (Xylocaine 1% Pf 30ml Vial) 30 ml 1X ONCE INJ Last administered on 08/16/19at 15:20; Start 08/16/19 at 14:45; Stop 08/16/19 at 14:46; Status DC Ondansetron HCl (Zofran) 4 mg PRN Q8HRS PRN IV NAUSEA/VOMITING; Start 08/16/19 at 16:15; Stop 08/17/19 at 16:14; Status DC Fentanyl Citrate (Fentanyl 2ml Vial) 50 mcg PRN Q1HR PRN IV PAIN; Start 08/16/19 at 16:15; Stop 08/17/19 at 16:14; Status DC Acetaminophen (Tylenol) 650 mg PRN Q4HRS PRN PO FEVER; Start 08/16/19 at 16:15; Stop 08/17/19 at 16:14; Status DC Amlodipine Besylate (Norvasc) 10 mg DAILY PO Last administered on 08/17/19at 09:08; Start 08/17/19 at 09:00 Aspirin (Jodi Aspirin) 650 mg PRN Q12HRS PRN PO INFLAMATION; Start 08/16/19 at 21:30 Hydrochlorothiazide (Hydrodiuril) 25 mg DAILY PO Last administered on 08/17/19at 09:08; Start 08/17/19 at 09:00 Latanoprost (Xalatan) 2 drop HS OU Last administered on 08/16/19at 22:14; Start 08/16/19 at 22:00 Timolol Maleate (Timoptic 0.5% [facility]) 5 drop BID OU Last administered on 08/17/19at 09:09; Start 08/16/19 at 22:00 Brimonidine Tartrate (Alphagan) 1 drop BID OU Last administered on 08/17/19at 10:17; Start 08/17/19 at 10:30 Losartan Potassium (Cozaar) 100 mg DAILY PO Last administered on 08/17/19at 09:14; Start 08/17/19 at 09:00 Ketorolac Tromethamine (Toradol 15mg Vial) 15 mg PRN Q6HRS PRN IVP PAIN Last administered on 08/17/19at 00:53; Start 08/16/19 at 21:30; Stop 08/21/19 at 21:29 Dorzolamide HCl (Trusopt) 1 drop BID OU ; Start 08/17/19 at 21:00 Active Scripts Active Reported Timolol Maleate 5 Ml Drops 5 BID Simbrinza 1%-0.2% Eye Drops (Brinzolamide/Brimonid Tart) 8 Ml Drops.susp 0.2 BID Hydrochlorothiazide 25 Mg Tablet 25 DAILY Latanoprost 2.5 Ml Drops 2.5 HS Aspirin 325 Mg Tablet 650 Mg PO PRN Losartan Potassium 100 Mg Tablet 100 Mg PO DAILY LAST DOSE GIVEN: DATE: 09/14/15 TIME: 09 AM NEXT DOSE DUE: DATE: 09/15/15 TIME: 09 AM Norvasc (Amlodipine Besylate) 10 Mg Tablet 10 Mg PO DAILY LAST DOSE GIVEN: DATE: 09/14/15 TIME: 09 AM NEXT DOSE DUE: DATE: 09/15/15 TIME: 09 AM Vitals/I & O Vital Sign - Last 24 Hours 08/16/19 08/16/19 08/16/19 08/16/19 16:53 17:30 17:40 19:00 Temp 98.7 98.1 98.7 98.1 Pulse 80 76 83 Resp 18 20 16 B/P (MAP) 131/76 (94) 147/94 (111) 137/85 (102) Pulse Ox 97 98 99 O2 Delivery Nasal Cannula Nasal Cannula Nasal Cannula Nasal Cannula O2 Flow Rate 2.0 2.0 2.0 2.0 08/16/19 08/16/19 08/17/19 08/17/19 19:15 22:12 03:11 07:00 Temp 97.6 98.4 97.7 97.6 98.4 97.7 Pulse 83 70 69 Resp 16 18 18 B/P (MAP) 151/85 (107) 135/73 (93) 134/83 (100) Pulse Ox 97 93 96 O2 Delivery Nasal Cannula Nasal Cannula Nasal Cannula Nasal Cannula O2 Flow Rate 2.0 2.0 2.0 2.0 08/17/19 08/17/19 08/17/19 08/17/19 08:00 09:08 09:14 10:55 Temp 97.4 97.4 Pulse 69 69 92 Resp 18 B/P (MAP) 134/83 134/83 129/81 (97) Pulse Ox 97 O2 Delivery Nasal Cannula Nasal Cannula O2 Flow Rate 2.0 2.0 08/17/19 15:00 Temp 97.7 97.7 Pulse 68 Resp 18 B/P (MAP) 122/74 (90) Pulse Ox 96 O2 Delivery Nasal Cannula O2 Flow Rate 2.0 Intake and Output 08/16/19 08/16/19 08/17/19 15:00 23:00 07:00 Intake Total 300 ml Output Total 1100 ml 615 ml Balance -800 ml -615 ml CHARLES DAY MD Aug 17, 2019 16:33
--- NOTE | 2019-08-17 17:01 | CONS ---
DATE OF CONSULTATION: 08/17/2019 ATTENDING PHYSICIAN: CHARLES VALLADARES MD REASON FOR CONSULTATION: The patient seen in pulmonary consultation at the request of Dr. Valladares for pneumothorax. HISTORY OF PRESENT ILLNESS: The patient is a 54-year-old that smoked and quit approximately 20 years ago, presented with acute onset of shortness of breath; he coughed and then felt like he had chest discomfort. He presented to the Emergency Room. Chest x-ray was obtained revealing a large sided pneumothorax. Chest tube was placed. I reviewed the chest x-ray. Post chest tube placement, there was a small right apical pneumothorax. PAST MEDICAL HISTORY: Hypertension, COPD. MEDICATION: List was reviewed. ALLERGIES: PENICILLIN. SOCIAL HISTORY: He works as a automobile mechanic. He is currently not smoking. REVIEW OF SYSTEMS: As indicated above, otherwise, a 10-point system was reviewed and negative. FAMILY HISTORY: No family history of lung disorders. PHYSICAL EXAMINATION: VITAL SIGNS: Stable. O2 saturation greater than 92%, currently on room air. HEENT: Eyes, the sclerae were nonicteric. NECK: Jugular venous distention was not elevated. No lymphadenopathy. CHEST: Full expansion. LUNGS: Adequate air flow with no wheezes. CARDIOVASCULAR: Regular rate and rhythm with S1, S2, no S3. ABDOMEN: Soft, nontender, nondistended. EXTREMITIES: No clubbing, cyanosis or edema. LABORATORY DATA: Reviewed. White count was normal. Hemoglobin and hematocrit were noted. Electrolytes were noted. Serology for influenza was negative. IMPRESSION: 1. Spontaneous pneumothorax. 2. Chronic obstructive pulmonary disease. 3. Tobacco dependence, in remission. 4. Hypertension. PLAN: 1. Repeat chest x-ray revealed small apical pneumothorax, the patient continues to have air leak on wall suction. We will continue wall suctions for now. 2. Chest tube, once air leak on wall function resolves. 3. CT chest. I do appreciate the privilege in sharing in the patient's care. CHRISSIE VARELA MD DR: TIFFANIE/diana JOB#: [id number] / [id number]
[2019-08-17 19:55] VITALS: BP 124/77
--- NOTE | 2019-08-17 19:55 | NUR ---
Pt in bed assessment completed vss poc explained pt denied pain will resume care.Call light in reach.
[2019-08-17] MEDS: DORZOLAMIDE 2% OPHTH SOLUTION 10ML BOTTLE. OU SCH (21:36)
[2019-08-17] MEDS: LATANOPROST 0.005% OPHTH SOLUTION 2.5ML BOTTLE. OU SCH (21:38)
[2019-08-17 23:00] VITALS: BP 139/74
[2019-08-18 03:00] VITALS: BP 111/79
[2019-08-18 07:48] VITALS: BP 123/90
--- NOTE | 2019-08-18 08:17 | RAD ---
PORTABLE CHEST 1V History: Pneumothorax. Comparison: August 16 and August 16, 2019. Findings: Small right apical pneumothorax, unchanged. Stable right lateral chest tube. No consolidation. No pleural effusion. Normal heart size. Impression: 1. Small right pneumothorax, unchanged. Stable right chest tube. Electronically signed by: Eldon Draper DO (08/18/2019 8:14 AM) [id number]
[2019-08-18] MEDS: BRIMONIDINE 0.2% OPHTH SOLUTION 5ML BOTTLE. OU SCH ×2 (09:10→21:25)
[2019-08-18] MEDS: LOSARTAN POTASSIUM 50 MG TABLET. PO SCH (09:10)
[2019-08-18] MEDS: amLODIPine BESYLATE 10 MG TABLET PO SCH (09:10)
[2019-08-18] MEDS: DORZOLAMIDE 2% OPHTH SOLUTION 10ML BOTTLE. OU SCH ×2 (09:11→21:25)
[2019-08-18] MEDS: hydroCHLOROthiazide 25 MG TABLET PO SCH (09:12)
[2019-08-18] MEDS: TIMOLOL 0.5% OPHTH SOLUTION 5ML BOTTLE. OU SCH ×2 (09:12→21:26)
--- NOTE | 2019-08-18 09:41 | PDOC ---
PULMONARY PROGRESS NOTES Subjective Patient with no increasing shortness of air. No chest pain Vitals Vital Signs Date Time Temp Pulse Resp B/P (MAP) Pulse Ox O2 Delivery O2 Flow Rate FiO2 08/18/19 09:10 69 123/90 08/18/19 07:48 97.9 16 95 Nasal Cannula 2.0 97.9 ROS: No Nausea, No Chest Pain, No Abdominal Pain, No Increase Cough General: Alert Lungs: Clear Cardiovascular: S1, S2 Abdomen: Soft Neuro Exam: Alert Extremities: No Edema Skin: Warm Labs Laboratory Tests Test 08/16/19 14:38 08/16/19 14:45 08/16/19 15:20 Influenza Type A Antigen Negative (NEGATIVE) Influenza Type B Antigen Negative (NEGATIVE) White Blood Count 5.5 x10^3/uL (4.0-11.0) Red Blood Count 5.35 x10^6/uL (4.30-5.70) Hemoglobin 15.9 g/dL (13.0-17.5) Hematocrit 46.8 % (39.0-53.0) Mean Corpuscular Volume 88 fL (79-100) Mean Corpuscular Hemoglobin 30 pg (25-35) Mean Corpuscular Hemoglobin Concent 34 g/dL (31-37) Red Cell Distribution Width 14.7 % (11.5-14.5) Platelet Count 263 x10^3/uL (140-400) Neutrophils (%) (Auto) 55 % (31-73) Lymphocytes (%) (Auto) 27 % (24-48) Monocytes (%) (Auto) 12 % (0-9) Eosinophils (%) (Auto) 5 % (0-3) Basophils (%) (Auto) 1 % (0-3) Neutrophils # (Auto) 3.0 x10^3/uL (1.8-7.7) Lymphocytes # (Auto) 1.5 x10^3/uL (1.0-4.8) Monocytes # (Auto) 0.7 x10^3/uL (0.0-1.1) Eosinophils # (Auto) 0.3 x10^3/uL (0.0-0.7) Basophils # (Auto) 0.0 x10^3/uL (0.0-0.2) Sodium Level 135 mmol/L (136-145) Potassium Level 4.0 mmol/L (3.5-5.1) Chloride Level 98 mmol/L (98-107) Carbon Dioxide Level 28 mmol/L (21-32) Anion Gap 9 (6-14) Blood Urea Nitrogen 12 mg/dL (8-26) Creatinine 1.0 mg/dL (0.7-1.3) Estimated GFR (Cockcroft-Gault) 94.2 BUN/Creatinine Ratio 12 (6-20) Glucose Level 108 mg/dL (70-99) Calcium Level 9.4 mg/dL (8.5-10.1) Total Bilirubin 0.5 mg/dL (0.2-1.0) Aspartate Amino Transf (AST/SGOT) 27 U/L (15-37) Alanine Aminotransferase (ALT/SGPT) 35 U/L (16-63) Alkaline Phosphatase 59 U/L (46-116) Troponin I Quantitative < 0.017 ng/mL (0.000-0.055) [id number]-Zvp-[id number]-Type Natriuretic Peptide 10 pg/mL (0-124) Total Protein 8.1 g/dL (6.4-8.2) Albumin 4.2 g/dL (3.4-5.0) Albumin/Globulin Ratio 1.1 (1.0-1.7) Urine Collection Type Unknown Urine Color Yellow Urine Clarity Clear Urine pH 7.5 (<5.0-8.0) Urine Specific [place] 1.010 (1.000-1.030) Urine Protein Negative mg/dL (NEG-TRACE) Urine Glucose (UA) Negative mg/dL (NEG) Urine Ketones (Stick) Negative mg/dL (NEG) Urine Blood Negative (NEG) Urine Nitrite Negative (NEG) Urine Bilirubin Negative (NEG) Urine Urobilinogen Dipstick 0.2 mg/dL (0.2 mg/dL) Urine Leukocyte Esterase Negative (NEG) Urine RBC 0 /HPF (0-2) Urine WBC 0 /HPF (0-4) Urine Squamous Epithelial Cells Occ /LPF Urine Bacteria 0 /HPF (0-FEW) Medications Active Scripts Medications Dose Route/Sig Max Daily Dose Days Date Category Dose Instructions Timolol Maleate 5 Ml Drops 5 BID 08/16/19 Reported Simbrinza 1%-0.2% Eye Drops (Brinzolamide/Brimonid Tart) 8 Ml Drops.susp 0.2 BID 08/16/19 Reported Hydrochlorothiazide 25 Mg Tablet 25 DAILY 08/16/19 Reported Latanoprost 2.5 Ml Drops 2.5 HS 08/16/19 Reported Aspirin 325 Mg Tablet 650 Mg PO PRN 09/11/17 Reported Losartan Potassium 100 Mg Tablet 100 Mg PO DAILY 05/02/13 Reported LAST DOSE GIVEN: DATE: 09/14/15 TIME: 09 AM NEXT DOSE DUE: DATE: 09/15/15 TIME: 09 AM Norvasc (Amlodipine Besylate) 10 Mg Tablet 10 Mg PO DAILY 05/02/13 Reported LAST DOSE GIVEN: DATE: 09/14/15 TIME: 09 AM NEXT DOSE DUE: DATE: 09/15/15 TIME: 09 AM Impression . IMPRESSION: 1. Spontaneous pneumothorax. 2. Chronic obstructive pulmonary disease. 3. Tobacco dependence, in remission. 4. Hypertension. Plan . Less air leak on chest tube, will discontinue wall suction 1. Repeat chest x-ray revealed small apical pneumothorax, the patient continues to have air leak on wall suction. We will continue wall suctions for now. 2. Chest tube, once air leak on wall function resolves. 3. CT chest. Rule out bullous SISCHRISSIE REBOLLEDO MD Aug 18, 2019 09:41
[2019-08-18 10:33] VITALS: BP 136/79
--- NOTE | 2019-08-18 14:30 | NUR ---
SS following up with discharge planning. SS discussed with pt RN. Pt currently has chest tube. Discharge plan is currently home when ready. SS will continue to follow for discharge planning.
[2019-08-18 14:35] VITALS: BP 139/82
--- NOTE | 2019-08-18 17:52 | PDOC ---
PROGRESS NOTES Chief Complaint Chief Complaint Spontaneous pneumothorax Essential hypertension History of tobacco abuse COPD? Plan: Resume home medication Pulmonary medical device sales consultant for tube management repeat x ray in am still has air leak Further recommendations based on the clinical course DVT prophylaxis with SCDs History of Present Illness History of Present Illness No acute events reported overnight, case discussed with nursing staff patient in no acute distress no complaints during my visit Vitals Vitals Vital Signs Date Time Temp Pulse Resp B/P (MAP) Pulse Ox O2 Delivery O2 Flow Rate FiO2 08/18/19 14:35 97.7 62 18 139/82 (101) 96 Nasal Cannula 2.0 97.7 Physical Exam Physical Exam GEN.: No apparent distress. Alert and oriented. HEENT: Head is normocephalic, atraumatic NECK: Supple. LUNGS: Clear to auscultation. HEART: RRR, S1, S2 present. Peripheral pulses intact ABDOMEN: Soft, nontender. Positive bowel sounds. EXTREMITIES: Without any cyanosis. NEUROLOGIC: Normal speech, normal tone PSYCHIATRIC: Normal affect, normal mood. SKIN: No ulcerations General: Alert, Oriented X3 Lungs: Clear, Other (CT in place ) Abdomen: Normal bowel sounds, Soft Extremities: No clubbing, No cyanosis Skin: No rashes, No breakdown Assessment and Plan Assessmemt and Plan Problems Medical Problems: (1) Pneumothorax on right Status: Acute Comment Review of Relevant I have reviewed the following items kirsten (where applicable) has been applied. Medications Current Medications Lidocaine HCl (Xylocaine 1% Pf 30ml Vial) 30 ml 1X ONCE INJ Last administered on 08/16/19at 15:20; Start 08/16/19 at 14:45; Stop 08/16/19 at 14:46; Status DC Ondansetron HCl (Zofran) 4 mg PRN Q8HRS PRN IV NAUSEA/VOMITING; Start 08/16/19 at 16:15; Stop 08/17/19 at 16:14; Status DC Fentanyl Citrate (Fentanyl 2ml Vial) 50 mcg PRN Q1HR PRN IV PAIN; Start 08/16/19 at 16:15; Stop 08/17/19 at 16:14; Status DC Acetaminophen (Tylenol) 650 mg PRN Q4HRS PRN PO FEVER; Start 08/16/19 at 16:15; Stop 08/17/19 at 16:14; Status DC Amlodipine Besylate (Norvasc) 10 mg DAILY PO Last administered on 08/18/19 09:10; Start 08/17/19 at 09:00 Aspirin (Jodi Aspirin) 650 mg PRN Q12HRS PRN PO INFLAMATION; Start 08/16/19 at 21:30 Hydrochlorothiazide (Hydrodiuril) 25 mg DAILY PO Last administered on 08/18/19 09:12; Start 08/17/19 at 09:00 Latanoprost (Xalatan) 2 drop HS OU Last administered on 08/17/19at 21:38; Start 08/16/19 at 22:00 Timolol Maleate (Timoptic 0.5% [facility]) 5 drop BID OU Last administered on 08/18/19 09:12; Start 08/16/19 at 22:00 Brimonidine Tartrate (Alphagan) 1 drop BID OU Last administered on 08/18/19 09:10; Start 08/17/19 at 10:30 Losartan Potassium (Cozaar) 100 mg DAILY PO Last administered on 08/18/19 09:10; Start 08/17/19 at 09:00 Ketorolac Tromethamine (Toradol 15mg Vial) 15 mg PRN Q6HRS PRN IVP PAIN Last administered on 08/17/19 00:53; Start 08/16/19 at 21:30; Stop 08/21/19 at 21:29 Dorzolamide HCl (Trusopt) 1 drop BID OU Last administered on 08/18/19 09:11; Start 08/17/19 at 21:00 Active Scripts Active Reported Timolol Maleate 5 Ml Drops 1 BID Simbrinza 1%-0.2% Eye Drops (Brinzolamide/Brimonid Tart) 8 Ml Drops.susp 0.2 BID Hydrochlorothiazide 25 Mg Tablet 25 DAILY Latanoprost 2.5 Ml Drops 2.5 HS Aspirin 325 Mg Tablet 650 Mg PO PRN Losartan Potassium 100 Mg Tablet 100 Mg PO DAILY LAST DOSE GIVEN: DATE: 09/14/15 TIME: 09 AM NEXT DOSE DUE: DATE: 09/15/15 TIME: 09 AM Norvasc (Amlodipine Besylate) 10 Mg Tablet 10 Mg PO DAILY LAST DOSE GIVEN: DATE: 09/14/15 TIME: 09 AM NEXT DOSE DUE: DATE: 09/15/15 TIME: 09 AM Vitals/I & O Vital Sign - Last 24 Hours 08/17/19 08/17/19 08/17/19 08/18/19 19:55 19:55 23:00 03:00 Temp 97.5 97.9 98.0 97.5 97.9 98.0 Pulse 69 75 68 Resp 16 18 16 B/P (MAP) 124/77 (93) 139/74 (95) 111/79 (90) Pulse Ox 96 97 95 O2 Delivery Nasal Cannula Nasal Cannula Nasal Cannula Nasal Cannula O2 Flow Rate 2.0 2.0 2.0 2.0 08/18/19 08/18/19 08/18/19 08/18/19 07:48 08:00 09:10 09:10 Temp 97.9 97.9 Pulse 69 69 69 Resp 16 B/P (MAP) 123/90 (101) 123/90 123/90 Pulse Ox 95 O2 Delivery Nasal Cannula Nasal Cannula O2 Flow Rate 2.0 2.0 08/18/19 08/18/19 10:33 14:35 Temp 98.1 97.7 98.1 97.7 Pulse 66 62 Resp 20 18 B/P (MAP) 136/79 (98) 139/82 (101) Pulse Ox 97 96 O2 Delivery Nasal Cannula Nasal Cannula O2 Flow Rate 2.0 2.0 Intake and Output 08/17/19 08/17/19 08/18/19 15:00 23:00 07:00 Intake Total 350 ml 250 ml 340 ml Output Total 400 ml 1155 ml 1105 ml Balance -50 ml -905 ml -765 ml FRANSICO GASPAR MD Aug 18, 2019 17:52
[2019-08-18 19:56] VITALS: BP 122/62
--- NOTE | 2019-08-18 20:00 | NUR ---
pt sitting up in chair without c/o pain assessment completed vss poc explained will resume care and continue to monitor pt. Call light in reach.
[2019-08-18] MEDS: LATANOPROST 0.005% OPHTH SOLUTION 2.5ML BOTTLE. OU SCH (21:25)
[2019-08-18 22:19] VITALS: BP 127/70
[2019-08-19 02:41] VITALS: BP 152/80
[2019-08-19] MEDS: KETOROLAC 15 MG/ML VIAL. IVP PRN (06:26)
[2019-08-19 07:18] VITALS: BP 124/78
--- NOTE | 2019-08-19 09:21 | RAD ---
AP chest. HISTORY: Pneumothorax AP view was taken of the chest. There is a persistent moderate right pneumothorax without improvement. There are no acute infiltrates. There is no pleural effusion. The heart is normal in size. Small chest tube is again identified without change. IMPRESSION: 1. Persistent moderate right pneumothorax without improvement. 2. Exact positioning of the chest tube is in question. Electronically signed by: Shon Bowie MD (08/19/2019 9:18 AM) [id number]
[2019-08-19] MEDS: hydroCHLOROthiazide 25 MG TABLET PO SCH (09:30)
[2019-08-19] MEDS: amLODIPine BESYLATE 10 MG TABLET PO SCH (09:31)
[2019-08-19] MEDS: LOSARTAN POTASSIUM 50 MG TABLET. PO SCH (09:31)
[2019-08-19] MEDS: DORZOLAMIDE 2% OPHTH SOLUTION 10ML BOTTLE. OU SCH ×2 (09:33→21:36)
[2019-08-19] MEDS: BRIMONIDINE 0.2% OPHTH SOLUTION 5ML BOTTLE. OU SCH ×2 (09:33→21:38)
[2019-08-19] MEDS: TIMOLOL 0.5% OPHTH SOLUTION 5ML BOTTLE. OU SCH ×2 (09:34→21:37)
[2019-08-19 10:24] VITALS: BP 122/75
--- NOTE | 2019-08-19 11:36 | NUR ---
SS following up with discharge planning. SS discussed with pt RN. Chest tube remains in place. Pt having repeat chest x-ray at 1300. SS will continue to follow for discharge planning.
--- NOTE | 2019-08-19 13:24 | RAD ---
CHEST AP ONLY History: Chest tube. Comparison: August 19, 2019. 8:25 AM Findings: Slightly increased right pneumothorax. Stable right chest tube. No pleural effusion. Normal heart size. Patchy right medial basilar opacity. Impression: 1. Slightly increased right pneumothorax. Stable right chest tube. 2. Patchy right medial basilar opacity, likely atelectasis. Electronically signed by: Eldon Draper DO (08/19/2019 1:22 PM) [id number]
--- NOTE | 2019-08-19 14:00 | PDOC ---
PROGRESS NOTES Chief Complaint Chief Complaint Spontaneous pneumothorax Essential hypertension History of tobacco abuse COPD? Plan: Resume home medication Pulmonary following for tube management xray with persistant right ptx still has air leak Further recommendations based on the clinical course DVT prophylaxis with SCDs History of Present Illness History of Present Illness No acute events reported overnight, case discussed with nursing staff patient in no acute distress no complaints during my visit Vitals Vitals Vital Signs Date Time Temp Pulse Resp B/P (MAP) Pulse Ox O2 Delivery O2 Flow Rate FiO2 08/19/19 10:24 98.1 64 16 122/75 (91) 92 Room Air 98.1 08/19/19 08:00 2.0 Physical Exam Physical Exam GEN.: No apparent distress. Alert and oriented. HEENT: Head is normocephalic, atraumatic NECK: Supple. LUNGS: Clear to auscultation. HEART: RRR, S1, S2 present. Peripheral pulses intact ABDOMEN: Soft, nontender. Positive bowel sounds. EXTREMITIES: Without any cyanosis. NEUROLOGIC: Normal speech, normal tone PSYCHIATRIC: Normal affect, normal mood. SKIN: No ulcerations General: Alert, Oriented X3 Lungs: Clear Abdomen: Normal bowel sounds, Soft Extremities: No clubbing, No cyanosis Skin: No rashes, No breakdown Assessment and Plan Assessmemt and Plan Problems Medical Problems: (1) Pneumothorax on right Status: Acute Comment Review of Relevant I have reviewed the following items kirsten (where applicable) has been applied. Medications Current Medications Lidocaine HCl (Xylocaine 1% Pf 30ml Vial) 30 ml 1X ONCE INJ Last administered on 08/16/19at 15:20; Start 08/16/19 at 14:45; Stop 08/16/19 at 14:46; Status DC Ondansetron HCl (Zofran) 4 mg PRN Q8HRS PRN IV NAUSEA/VOMITING; Start 08/16/19 at 16:15; Stop 08/17/19 at 16:14; Status DC Fentanyl Citrate (Fentanyl 2ml Vial) 50 mcg PRN Q1HR PRN IV PAIN; Start 08/16/19 at 16:15; Stop 08/17/19 at 16:14; Status DC Acetaminophen (Tylenol) 650 mg PRN Q4HRS PRN PO FEVER; Start 08/16/19 at 16:15; Stop 08/17/19 at 16:14; Status DC Amlodipine Besylate (Norvasc) 10 mg DAILY PO Last administered on 08/19/19 09:31; Start 08/17/19 at 09:00 Aspirin (Jodi Aspirin) 650 mg PRN Q12HRS PRN PO INFLAMATION; Start 08/16/19 at 21:30 Hydrochlorothiazide (Hydrodiuril) 25 mg DAILY PO Last administered on 08/19/19 09:30; Start 08/17/19 at 09:00 Latanoprost (Xalatan) 2 drop HS OU Last administered on 08/18/19 21:25; Start 08/16/19 at 22:00 Timolol Maleate (Timoptic 0.5% Ophth) 5 drop BID OU Last administered on 08/19/19 09:34; Start 08/16/19 at 22:00 Brimonidine Tartrate (Alphagan) 1 drop BID OU Last administered on 08/19/19 09:33; Start 08/17/19 at 10:30 Losartan Potassium (Cozaar) 100 mg DAILY PO Last administered on 08/19/19 09:31; Start 08/17/19 at 09:00 Ketorolac Tromethamine (Toradol 15mg Vial) 15 mg PRN Q6HRS PRN IVP PAIN Last administered on 08/19/19 06:26; Start 08/16/19 at 21:30; Stop 08/21/19 at 21:29 Dorzolamide HCl (Trusopt) 1 drop BID OU Last administered on 08/19/19 09:33; Start 08/17/19 at 21:00 Active Scripts Active Reported Timolol Maleate 5 Ml Drops 1 BID Simbrinza 1%-0.2% Eye Drops (Brinzolamide/Brimonid Tart) 8 Ml Drops.susp 0.2 BID Hydrochlorothiazide 25 Mg Tablet 25 DAILY Latanoprost 2.5 Ml Drops 2.5 HS Aspirin 325 Mg Tablet 650 Mg PO PRN Losartan Potassium 100 Mg Tablet 100 Mg PO DAILY LAST DOSE GIVEN: DATE: 09/14/15 TIME: 09 AM NEXT DOSE DUE: DATE: 09/15/15 TIME: 09 AM Norvasc (Amlodipine Besylate) 10 Mg Tablet 10 Mg PO DAILY LAST DOSE GIVEN: DATE: 09/14/15 TIME: 09 AM NEXT DOSE DUE: DATE: 09/15/15 TIME: 09 AM Vitals/I & O Vital Sign - Last 24 Hours 08/18/19 08/18/19 08/18/19 08/18/19 14:35 19:56 20:00 22:19 Temp 97.7 97.5 98.1 97.7 97.5 98.1 Pulse 62 72 74 Resp 18 16 16 B/P (MAP) 139/82 (101) 122/62 (82) 127/70 (89) Pulse Ox 96 96 94 O2 Delivery Nasal Cannula Nasal Cannula Nasal Cannula Nasal Cannula O2 Flow Rate 2.0 2.0 2.0 2.0 08/19/19 08/19/19 08/19/19 08/19/19 02:41 07:18 08:00 09:31 Temp 98.3 97.2 98.3 97.2 Pulse 68 69 69 Resp 16 16 B/P (MAP) 152/80 (104) 124/78 (93) 124/78 Pulse Ox 94 92 O2 Delivery Room Air Room Air Nasal Cannula O2 Flow Rate 2.0 08/19/19 08/19/19 09:31 10:24 Temp 98.1 98.1 Pulse 69 64 Resp 16 B/P (MAP) 124/78 122/75 (91) Pulse Ox 92 O2 Delivery Room Air Intake and Output 08/18/19 08/18/19 08/19/19 15:00 23:00 07:00 Intake Total 380 ml 1940 ml 0 ml Output Total 1300 ml 1380 ml 800 ml Balance -920 ml 560 ml -800 ml FRANSICO GASPAR MD Aug 19, 2019 14:00
[2019-08-19 14:44] VITALS: BP 141/73
--- NOTE | 2019-08-19 14:55 | NUR ---
Chest x-ray report reads increased in size of right pneumothorax post water seal chest tube. Placed back on -[address] Cary.
[2019-08-19] MEDS: LATANOPROST 0.005% OPHTH SOLUTION 2.5ML BOTTLE. OU SCH (21:38)
[2019-08-19 23:35] VITALS: BP 111/74
[2019-08-20] VITALS (12 sets, daily range): BP systolic 103–151; BP diastolic 65–93
[2019-08-20] MEDS: KETOROLAC 15 MG/ML VIAL. IVP PRN ×2 (02:56→21:57)
--- NOTE | 2019-08-20 07:57 | RAD ---
PORTABLE CHEST 1V INDICATION: Pneumothorax. COMPARISON STUDY: 08/19/2019. FINDINGS: Life Support Devices: Right chest tube. Lungs: Normal lung volume. No focal airspace disease. Normal pulmonary vasculature. Pleura: Stable small right pneumothorax. Heart and Mediastinum: Stable cardiomediastinal silhouette and great vessels. Bones and Soft Tissues: Stable regional skeleton and soft tissues. IMPRESSION: Stable small right pneumothorax with right chest tube in place. Electronically signed by: Gaurang Calles MD (08/20/2019 7:54 AM) [id number]
[2019-08-20] MEDS: amLODIPine BESYLATE 10 MG TABLET PO SCH (09:00)
[2019-08-20] MEDS: LOSARTAN POTASSIUM 50 MG TABLET. PO SCH (09:05)
[2019-08-20] MEDS: DORZOLAMIDE 2% OPHTH SOLUTION 10ML BOTTLE. OU SCH ×2 (09:06→20:39)
[2019-08-20] MEDS: BRIMONIDINE 0.2% OPHTH SOLUTION 5ML BOTTLE. OU SCH ×2 (09:06→20:40)
[2019-08-20] MEDS: TIMOLOL 0.5% OPHTH SOLUTION 5ML BOTTLE. OU SCH ×2 (09:06→20:39)
[2019-08-20] MEDS: hydroCHLOROthiazide 25 MG TABLET PO SCH (09:23)
--- NOTE | 2019-08-20 10:09 | PDOC ---
PULMONARY PROGRESS NOTES Subjective LATE ENTRY 08/18/2019 @ 1030am Vitals Vital Signs Date Time Temp Pulse Resp B/P (MAP) Pulse Ox O2 Delivery O2 Flow Rate FiO2 08/20/19 09:05 67 117/71 08/20/19 07:00 98.0 18 91 Nasal Cannula 2.0 98.0 ROS: No Nausea, No Chest Pain, No Abdominal Pain, No Increase Cough General: Alert Lungs: Clear Cardiovascular: S1, S2 Abdomen: Soft Neuro Exam: Alert Extremities: No Edema Skin: Warm Medications Active Scripts Medications Dose Route/Sig Max Daily Dose Days Date Category Dose Instructions Timolol Maleate 5 Ml Drops 5 BID 08/16/19 Reported Simbrinza 1%-0.2% Eye Drops (Brinzolamide/Brimonid Tart) 8 Ml Drops.susp 0.2 BID 08/16/19 Reported Hydrochlorothiazide 25 Mg Tablet 25 DAILY 08/16/19 Reported Latanoprost 2.5 Ml Drops 2.5 HS 08/16/19 Reported Aspirin 325 Mg Tablet 650 Mg PO PRN 09/11/17 Reported Losartan Potassium 100 Mg Tablet 100 Mg PO DAILY 05/02/13 Reported LAST DOSE GIVEN: DATE: 09/14/15 TIME: 09 AM NEXT DOSE DUE: DATE: 09/15/15 TIME: 09 AM Norvasc (Amlodipine Besylate) 10 Mg Tablet 10 Mg PO DAILY 05/02/13 Reported LAST DOSE GIVEN: DATE: 09/14/15 TIME: 09 AM NEXT DOSE DUE: DATE: 09/15/15 TIME: 09 AM Impression . IMPRESSION: 1. Spontaneous pneumothorax. 2. Chronic obstructive pulmonary disease. 3. Tobacco dependence, in remission. 4. Hypertension. Plan . Less air leak on chest tube, will discontinue wall suction, repeat chest x-ray in 3 hours 1. Repeat chest x-ray revealed small apical pneumothorax, the patient continues to have air leak on wall suction. We will continue wall suctions for now. 2. Chest tube, once air leak on wall function resolves. 3. CT chest. Rule out bullous CHRISSIE VARELA MD Aug 20, 2019 10:09
--- NOTE | 2019-08-20 10:12 | PDOC ---
PULMONARY PROGRESS NOTES Subjective Patient with no increasing shortness of air. No chest pain, mild non-productive cough Vitals Vital Signs Date Time Temp Pulse Resp B/P (MAP) Pulse Ox O2 Delivery O2 Flow Rate FiO2 08/20/19 09:05 67 117/71 08/20/19 07:00 98.0 18 91 Nasal Cannula 2.0 98.0 ROS: No Nausea, No Chest Pain, No Abdominal Pain, No Increase Cough General: Alert, Oriented X4, No acute distress Lungs: Clear Cardiovascular: S1, S2 Abdomen: Soft Neuro Exam: Alert Extremities: No Edema Skin: Warm Medications Active Scripts Medications Dose Route/Sig Max Daily Dose Days Date Category Dose Instructions Timolol Maleate 5 Ml Drops 5 BID 08/16/19 Reported Simbrinza 1%-0.2% Eye Drops (Brinzolamide/Brimonid Tart) 8 Ml Drops.susp 0.2 BID 08/16/19 Reported Hydrochlorothiazide 25 Mg Tablet 25 DAILY 08/16/19 Reported Latanoprost 2.5 Ml Drops 2.5 HS 08/16/19 Reported Aspirin 325 Mg Tablet 650 Mg PO PRN 09/11/17 Reported Losartan Potassium 100 Mg Tablet 100 Mg PO DAILY 05/02/13 Reported LAST DOSE GIVEN: DATE: 09/14/15 TIME: 09 AM NEXT DOSE DUE: DATE: 09/15/15 TIME: 09 AM Norvasc (Amlodipine Besylate) 10 Mg Tablet 10 Mg PO DAILY 05/02/13 Reported LAST DOSE GIVEN: DATE: 09/14/15 TIME: 09 AM NEXT DOSE DUE: DATE: 09/15/15 TIME: 09 AM Comments CXR 08/20/2019 IMPRESSION: Stable small right pneumothorax with right chest tube in place. Impression . IMPRESSION: 1. Spontaneous pneumothorax with persistent air leak 2. Chronic obstructive pulmonary disease. 3. Tobacco dependence, in remission. 4. Hypertension. Plan . Repeat chest x-ray revealed continued pneumothorax, the patient continues to have air leak on wall suction. We will continue wall suctions for now, reassess in am Chest tube, once air leak on wall function resolves. Cont. chronic medications Remains on Room air D/W RN and with patient CHRISSIE VARELA MD Aug 20, 2019 10:12
--- NOTE | 2019-08-20 10:37 | PDOC ---
PROGRESS NOTES Chief Complaint Chief Complaint Spontaneous pneumothorax Essential hypertension History of tobacco abuse COPD Plan: continue home meds Pulmonary following for tube management xray with persistant right ptx still has air leak Further recommendations based on the clinical course DVT prophylaxis with SCDs History of Present Illness History of Present Illness No acute events reported overnight, case discussed with nursing staff patient in no acute distress no complaints during my visit Vitals Vitals Vital Signs Date Time Temp Pulse Resp B/P (MAP) Pulse Ox O2 Delivery O2 Flow Rate FiO2 08/20/19 09:05 67 117/71 08/20/19 07:00 98.0 18 91 Nasal Cannula 2.0 98.0 Physical Exam Physical Exam GEN.: No apparent distress. Alert and oriented. HEENT: Head is normocephalic, atraumatic NECK: Supple. LUNGS: Clear to auscultation. HEART: RRR, S1, S2 present. Peripheral pulses intact ABDOMEN: Soft, nontender. Positive bowel sounds. EXTREMITIES: Without any cyanosis. NEUROLOGIC: Normal speech, normal tone PSYCHIATRIC: Normal affect, normal mood. SKIN: No ulcerations General: Alert, Oriented X3 Lungs: Clear Abdomen: Normal bowel sounds, Soft Extremities: No clubbing, No cyanosis Skin: No rashes, No breakdown Assessment and Plan Assessmemt and Plan Problems Medical Problems: (1) Pneumothorax on right Status: Acute Comment Review of Relevant I have reviewed the following items kirsten (where applicable) has been applied. Medications Current Medications Lidocaine HCl (Xylocaine 1% Pf 30ml Vial) 30 ml 1X ONCE INJ Last administered on 08/16/19at 15:20; Start 08/16/19 at 14:45; Stop 08/16/19 at 14:46; Status DC Ondansetron HCl (Zofran) 4 mg PRN Q8HRS PRN IV NAUSEA/VOMITING; Start 08/16/19 at 16:15; Stop 08/17/19 at 16:14; Status DC Fentanyl Citrate (Fentanyl 2ml Vial) 50 mcg PRN Q1HR PRN IV PAIN; Start 08/16/19 at 16:15; Stop 08/17/19 at 16:14; Status DC Acetaminophen (Tylenol) 650 mg PRN Q4HRS PRN PO FEVER; Start 08/16/19 at 16:15; Stop 08/17/19 at 16:14; Status DC Amlodipine Besylate (Norvasc) 10 mg DAILY PO Last administered on 08/19/19at 0 9:31; Start 08/17/19 at 09:00 Aspirin (Jodi Aspirin) 650 mg PRN Q12HRS PRN PO INFLAMATION; Start 08/16/19 at 21:30 Hydrochlorothiazide (Hydrodiuril) 25 mg DAILY PO Last administered on 08/20/19at 09:23; Start 08/17/19 at 09:00 Latanoprost (Xalatan) 2 drop HS OU Last administered on 08/19/19at 21:38; Start 08/16/19 at 22:00 Timolol Maleate (Timoptic 0.5% Ophth) 5 drop BID OU Last administered on 08/20/19 09:06; Start 08/16/19 at 22:00 Brimonidine Tartrate (Alphagan) 1 drop BID OU Last administered on 08/20/19 09:06; Start 08/17/19 at 10:30 Losartan Potassium (Cozaar) 100 mg DAILY PO Last administered on 08/20/19at 09:05; Start 08/17/19 at 09:00 Ketorolac Tromethamine (Toradol 15mg Vial) 15 mg PRN Q6HRS PRN IVP PAIN Last administered on 08/20/19 02:56; Start 08/16/19 at 21:30; Stop 08/21/19 at 21:29 Dorzolamide HCl (Trusopt) 1 drop BID OU Last administered on 08/20/19 09:06; Start 08/17/19 at 21:00 Active Scripts Active Reported Timolol Maleate 5 Ml Drops 1 BID Simbrinza 1%-0.2% Eye Drops (Brinzolamide/Brimonid Tart) 8 Ml Drops.susp 0.2 BID Hydrochlorothiazide 25 Mg Tablet 25 DAILY Latanoprost 2.5 Ml Drops 2.5 HS Aspirin 325 Mg Tablet 650 Mg PO PRN Losartan Potassium 100 Mg Tablet 100 Mg PO DAILY LAST DOSE GIVEN: DATE: 09/14/15 TIME: 09 AM NEXT DOSE DUE: DATE: 09/15/15 TIME: 09 AM Norvasc (Amlodipine Besylate) 10 Mg Tablet 10 Mg PO DAILY LAST DOSE GIVEN: DATE: 09/14/15 TIME: 09 AM NEXT DOSE DUE: DATE: 09/15/15 TIME: 09 AM Vitals/I & O Vital Sign - Last 24 Hours 08/19/19 08/19/19 08/19/19 08/19/19 14:44 19:50 19:50 23:35 Temp 97.8 98.4 97.8 98.4 Pulse 57 74 Resp 16 18 B/P (MAP) 141/73 (95) 111/74 (86) Pulse Ox 96 98 O2 Delivery Room Air Nasal Cannula Nasal Cannula Nasal Cannula O2 Flow Rate 2.0 2.0 2.0 08/20/19 08/20/19 08/20/19 03:54 07:00 09:05 Temp 97.6 98.0 97.6 98.0 Pulse 71 67 67 Resp 18 18 B/P (MAP) 138/91 (107) 117/71 (86) 117/71 Pulse Ox 93 91 O2 Delivery Nasal Cannula Nasal Cannula O2 Flow Rate 2.0 2.0 Intake and Output 08/19/19 08/19/19 08/20/19 15:00 23:00 07:00 Intake Total 720 ml 1600 ml 300 ml Output Total 700 ml 300 ml Balance 720 ml 900 ml 0 ml FRANSICO GASPAR MD Aug 20, 2019 10:37
--- NOTE | 2019-08-20 14:30 | RAD ---
CHEST AP ONLY 08/20/2019 2:14 PM INDICATION: Shortness of air COMPARISON: 08/20/2019 TECHNIQUE: Portable frontal view of the chest is provided. FINDINGS/ IMPRESSION: Significant increase in right-sided pneumothorax. There is approximately 6.5 cm pleural separation. No significant mediastinal shift compared to prior examination. FOR INTERNAL CODING PURPOSES Critical result: Findings discussed with Del, the patient's nurse, at 08/20/2019 2:27 PM. RESULT CODE: (C) Electronically signed by: Alma Coughlin MD (08/20/2019 2:27 PM) [facility] [place]
[2019-08-20] MEDS ORDERED: LIDOCAINE 1% PF 5 ML VIAL. INJ ONE (15:45)
[2019-08-20] MEDS ORDERED: MIDAZOLAM HCL/PF 5 MG/5 ML VIAL. IV ONE (16:00)
[2019-08-20] MEDS ORDERED: MEPERIDINE PF 25 MG/ML VIAL. IV ONE (16:00)
--- NOTE | 2019-08-20 18:11 | RAD ---
Exam: Chest one view INDICATION: New chest tube TECHNIQUE: Frontal view of the chest Comparisons: 08/20/2019 FINDINGS: Interval placement of a right-sided chest tube. The cardiomediastinal silhouette and pulmonary vessels are within normal limits. Small residual right apical pneumothorax. No consolidation. IMPRESSION: Interval placement of right-sided chest tube with small residual right apical pneumothorax. Electronically signed by: Jena Nelson MD (08/20/2019 6:09 PM) [id number]
[2019-08-20] MEDS: LATANOPROST 0.005% OPHTH SOLUTION 2.5ML BOTTLE. OU SCH (20:37)
[2019-08-21 02:28] VITALS: BP 103/65
[2019-08-21 07:00] VITALS: BP 140/86
[2019-08-21] MEDS: KETOROLAC 15 MG/ML VIAL. IVP PRN (08:07)
[2019-08-21] MEDS: DORZOLAMIDE 2% OPHTH SOLUTION 10ML BOTTLE. OU SCH ×2 (08:11→20:55)
[2019-08-21] MEDS: BRIMONIDINE 0.2% OPHTH SOLUTION 5ML BOTTLE. OU SCH ×2 (08:11→20:55)
[2019-08-21] MEDS: TIMOLOL 0.5% OPHTH SOLUTION 5ML BOTTLE. OU SCH ×2 (08:11→20:49)
[2019-08-21] MEDS: amLODIPine BESYLATE 10 MG TABLET PO SCH (08:12)
[2019-08-21] MEDS: LOSARTAN POTASSIUM 50 MG TABLET. PO SCH (08:12)
[2019-08-21] MEDS: hydroCHLOROthiazide 25 MG TABLET PO SCH (08:13)
--- NOTE | 2019-08-21 09:57 | PDOC ---
PULMONARY PROGRESS NOTES Subjective Patient with no increasing shortness of air. No chest pain, mild non-productive cough Developed CP yesterday afternoon, required replacement of Chest tube, Vitals Vital Signs Date Time Temp Pulse Resp B/P (MAP) Pulse Ox O2 Delivery O2 Flow Rate FiO2 08/21/19 08:12 66 140/86 08/21/19 07:00 97.5 18 97 Nasal Cannula 2.0 97.5 ROS: No Nausea, No Chest Pain, No Abdominal Pain, No Increase Cough General: Alert, Oriented X4, No acute distress Lungs: Clear Cardiovascular: S1, S2 Abdomen: Soft Neuro Exam: Alert Extremities: No Edema Skin: Warm Medications Active Scripts Medications Dose Route/Sig Max Daily Dose Days Date Category Dose Instructions Timolol Maleate 5 Ml Drops 5 BID 08/16/19 Reported Simbrinza 1%-0.2% Eye Drops (Brinzolamide/Brimonid Tart) 8 Ml Drops.susp 0.2 BID 08/16/19 Reported Hydrochlorothiazide 25 Mg Tablet 25 DAILY 08/16/19 Reported Latanoprost 2.5 Ml Drops 2.5 HS 08/16/19 Reported Aspirin 325 Mg Tablet 650 Mg PO PRN 09/11/17 Reported Losartan Potassium 100 Mg Tablet 100 Mg PO DAILY 05/02/13 Reported LAST DOSE GIVEN: DATE: 09/14/15 TIME: 09 AM NEXT DOSE DUE: DATE: 09/15/15 TIME: 09 AM Norvasc (Amlodipine Besylate) 10 Mg Tablet 10 Mg PO DAILY 05/02/13 Reported LAST DOSE GIVEN: DATE: 09/14/15 TIME: 09 AM NEXT DOSE DUE: DATE: 09/15/15 TIME: 09 AM Impression . IMPRESSION: 1. Spontaneous pneumothorax with persistent air leak, air leak improving status post replacement with chest tube Kenyan 24 2. Chronic obstructive pulmonary disease. 3. Tobacco dependence, in remission. 4. Hypertension. 5 status post recent placement of chest tube with a 24 Kenyan tube on 411 Plan . Supplemental oxygen to oxygen sats above 92% Chest tube dislodged 08/20/2019, required replacement of Chest tube with #24 [facility] [place] tube Continue chest tube to wall suction, decreased persistent air leak, plan to go to water seal in am with follow up CXR Chest tube, once air leak on wall function resolves. CT chest. Rule out bullous D/W CHRISSIE NGO MD Aug 21, 2019 09:57
--- NOTE | 2019-08-21 09:57 | RAD ---
PORTABLE CHEST 1V INDICATION: . COMPARISON STUDY: 08/20/2019. FINDINGS: Life Support Devices: Right chest tube. Lungs: Normal lung volume. No focal airspace disease. Normal pulmonary vasculature. Pleura: Slightly larger right apical pneumothorax with 1.8 cm pleural separation, previously 0.8 cm. Heart and Mediastinum: Stable cardiomediastinal silhouette and great vessels. Bones and Soft Tissues: Stable regional skeleton and soft tissues. IMPRESSION: Slightly larger right apical pneumothorax with right chest tube in place. Electronically signed by: Gaurang Calles MD (08/21/2019 9:54 AM) [id number]
[2019-08-21 11:00] VITALS: BP 133/73
--- NOTE | 2019-08-21 11:05 | PDOC4 ---
PROCEDURE Procedure Late entry, chest tube placement on 20 August 2011 Chest tube placement, patient earlier yesterday had chest pain chest x-ray revealed new pneumothorax I was called with patient having increasing chest pain and shortness of air, a stat chest x-ray was obtained Small caliber chest tube had been dislodged, it was located subcutaneously, confirm with chest x-ray I attempted at manipulating the small caliber tube, I was unsuccessful. A 24 Fijian tube was inserted into the subcostal space. Sedation Versed 2 mg, Demerol 75 mg, vital signs and O2 saturations were maintained within normal limits throughout the procedure. The Versed and Demerol were given in incremental dosages. Patient was prepped in sterile fashion. A small incision was performed in the intercostal space after utilizing lidocaine for local anesthesia. Digital exam was performed along with blunt dissection utilizing a Ene, and my index finger. I was able to enter the subpleural space with the Ene, there was a gush of air. I then explored the subpleural space with my finger. There was no adhesions. A 24 Fijian tube was inserted into the pleural space. There was good pleural variation. There was continuous air leak. The chest tube was secured at 16 cm at the skin. A Vaseline gauze was utilized to place over the tube. Dressing was applied. Patient tolerated procedure well with no immediate complications, will check chest x-ray, obtain CT chest to rule out bullous emphysema. CHRISSIE VARELA MD Aug 21, 2019 11:05
--- NOTE | 2019-08-21 11:13 | RAD ---
CT scan of the chest without contrast 08/21/2019 CLINICAL HISTORY: Right pneumothorax. TECHNIQUE: Unenhanced contiguous, 5 mm axial sections were obtained through the chest. One or more of the following individualized dose reduction techniques were utilized for this study: 1. Automated exposure control. 2. Adjustment of the mA and/or kV according to patient size. 3. Use of iterative reconstruction technique. FINDINGS: Comparison is made to a portable chest radiograph dated 08/20/2019. A right-sided chest tube is seen extending laterally from the skin surface at the level of the right lung base. The tube extends superiorly along the right lateral pleural space extending to abut the fissure. There is a small right pneumothorax, anteriorly. Fairly extensive subcutaneous emphysema is seen along the right lateral chest wall extending slightly anteriorly and posteriorly. Subsegmental atelectasis is seen involving the right middle lobe, posteriorly. Mild bullous emphysematous changes are seen involving both upper lobes, right greater than left. No area of consolidation is noted. No pleural effusion is seen. Images through the upper abdomen demonstrate scattered atherosclerotic calcification of the abdominal aorta. Minimal S-shaped curvature of the thoracolumbar spine is seen. IMPRESSION: 1. A right-sided chest tube is seen extending along the right lateral pleural space as discussed above. There is a small right pneumothorax, anteriorly. Fairly extensive subcutaneous emphysema is seen along the right lateral chest wall. 2. Mild bullous emphysematous changes are seen involving the apices of both lungs, right greater than left. Electronically signed by: Kasi Caal MD (08/21/2019 11:10 AM) [id number]
--- NOTE | 2019-08-21 12:55 | PDOC ---
PROGRESS NOTES Chief Complaint Chief Complaint impression Spontaneous pneumothorax after coughing Essential hypertension History of tobacco abuse COPD Plan: continue home meds Pulmonary following for tube management xray with persistant right ptx still has air leak Further recommendations based on the clinical course DVT prophylaxis with SCDs d/w rn History of Present Illness History of Present Illness No acute events reported overnight, case discussed with nursing staff patient in no acute distress no complaints during my visit Vitals Vitals Vital Signs Date Time Temp Pulse Resp B/P (MAP) Pulse Ox O2 Delivery O2 Flow Rate FiO2 08/21/19 11:00 97.6 61 18 133/73 (93) 96 Nasal Cannula 2.0 97.6 Physical Exam Physical Exam GEN.: No apparent distress. Alert and oriented. HEENT: Head is normocephalic, atraumatic NECK: Supple. LUNGS: Clear to auscultation. HEART: RRR, S1, S2 present. Peripheral pulses intact ABDOMEN: Soft, nontender. Positive bowel sounds. EXTREMITIES: Without any cyanosis. NEUROLOGIC: Normal speech, normal tone PSYCHIATRIC: Normal affect, normal mood. SKIN: No ulcerations General: Alert, Oriented X3, Cooperative, No acute distress Heart: Regular rate Lungs: Clear Abdomen: Normal bowel sounds, Soft, No tenderness, No hepatosplenomegaly Extremities: No clubbing, No cyanosis Skin: No rashes, No breakdown Assessment and Plan Assessmemt and Plan Problems Medical Problems: (1) Pneumothorax on right Status: Acute Comment Review of Relevant I have reviewed the following items kirsten (where applicable) has been applied. Medications Current Medications Lidocaine HCl (Xylocaine 1% Pf 30ml Vial) 30 ml 1X ONCE INJ Last administered on 08/16/19at 15:20; Start 08/16/19 at 14:45; Stop 08/16/19 at 14:46; Status DC Ondansetron HCl (Zofran) 4 mg PRN Q8HRS PRN IV NAUSEA/VOMITING; Start 08/16/19 at 16:15; Stop 08/17/19 at 16:14; Status DC Fentanyl Citrate (Fentanyl 2ml Vial) 50 mcg PRN Q1HR PRN IV PAIN; Start 08/16/19 at 16:15; Stop 08/17/19 at 16:14; Status DC Acetaminophen (Tylenol) 650 mg PRN Q4HRS PRN PO FEVER; Start 08/16/19 at 16:15; Stop 08/17/19 at 16:14; Status DC Amlodipine Besylate (Norvasc) 10 mg DAILY PO Last administered on 08/21/19 08:12; Start 08/17/19 at 09:00 Aspirin (Jodi Aspirin) 650 mg PRN Q12HRS PRN PO INFLAMATION; Start 08/16/19 at 21:30 Hydrochlorothiazide (Hydrodiuril) 25 mg DAILY PO Last administered on 08/21/19at 08:13; Start 08/17/19 at 09:00 Latanoprost (Xalatan) 2 drop HS OU Last administered on 08/20/19at 20:37; Start 08/16/19 at 22:00 Timolol Maleate (Timoptic 0.5% [facility]) 5 drop BID OU Last administered on 08/21/19 08:11; Start 08/16/19 at 22:00 Brimonidine Tartrate (Alphagan) 1 drop BID OU Last administered on 08/21/19 08:11; Start 08/17/19 at 10:30 Losartan Potassium (Cozaar) 100 mg DAILY PO Last administered on 08/21/19 08:12; Start 08/17/19 at 09:00 Ketorolac Tromethamine (Toradol 15mg Vial) 15 mg PRN Q6HRS PRN IVP PAIN Last administered on 08/21/19 08:07; Start 08/16/19 at 21:30; Stop 08/21/19 at 21:29 Dorzolamide HCl (Trusopt) 1 drop BID OU Last administered on 08/21/19 08:11; Start 08/17/19 at 21:00 Lidocaine HCl (Xylocaine-Mpf 1% 5ml Vial) 5 ml 1X ONCE INJ Last administered on 08/20/19 16:48; Start 08/20/19 at 15:45; Stop 08/20/19 at 15:46; Status DC Midazolam HCl (Versed) 5 mg 1X ONCE IV Last administered on 08/20/19 16:47; Start 08/20/19 at 16:00; Stop 08/20/19 at 16:01; Status DC Meperidine HCl (Demerol) 100 mg 1X ONCE IV Last administered on 08/20/19at 16:48; Start 08/20/19 at 16:00; Stop 08/20/19 at 16:01; Status DC Active Scripts Active Reported Timolol Maleate 5 Ml Drops 1 BID Simbrinza 1%-0.2% Eye Drops (Brinzolamide/Brimonid Tart) 8 Ml Drops.susp 0.2 BID Hydrochlorothiazide 25 Mg Tablet 25 DAILY Latanoprost 2.5 Ml Drops 2.5 HS Aspirin 325 Mg Tablet 650 Mg PO PRN Losartan Potassium 100 Mg Tablet 100 Mg PO DAILY LAST DOSE GIVEN: DATE: 09/14/15 TIME: 09 AM NEXT DOSE DUE: DATE: 09/15/15 TIME: 09 AM Norvasc (Amlodipine Besylate) 10 Mg Tablet 10 Mg PO DAILY LAST DOSE GIVEN: DATE: 09/14/15 TIME: 09 AM NEXT DOSE DUE: DATE: 09/15/15 TIME: 09 AM Vitals/I & O Vital Sign - Last 24 Hours 08/20/19 08/20/19 08/20/19 08/20/19 15:00 16:15 16:30 16:43 Temp 97.6 97.6 Pulse 93 99 88 76 B/P (MAP) 143/93 (110) 151/93 (112) 119/82 (94) 109/69 (82) Pulse Ox 96 95 95 100 O2 Delivery Nasal Cannula Nasal Cannula Nasal Cannula Nasal Cannula O2 Flow Rate 2.0 3.0 3.0 2.0 08/20/19 08/20/19 08/20/19 08/20/19 16:48 17:00 17:30 18:00 Pulse 80 76 78 Resp 20 B/P (MAP) 120/88 (99) 128/84 (99) 125/70 (88) Pulse Ox 100 98 97 98 O2 Delivery Nasal Cannula Nasal Cannula Nasal Cannula Nasal Cannula O2 Flow Rate 2.0 2.0 2.0 2.0 08/20/19 08/20/19 08/20/19 08/21/19 19:50 20:00 22:58 02:28 Temp 98.1 98.1 98.2 98.1 98.1 98.2 Pulse 76 76 75 Resp 18 18 18 B/P (MAP) 126/75 (92) 125/70 (88) 103/65 (78) Pulse Ox 98 97 O2 Delivery Nasal Cannula Nasal Cannula Nasal Cannula O2 Flow Rate 2.0 2.0 2.0 08/21/19 08/21/19 08/21/19 08/21/19 07:00 07:50 08:12 08:12 Temp 97.5 97.5 Pulse 66 66 66 Resp 18 B/P (MAP) 140/86 (104) 140/86 140/86 Pulse Ox 97 O2 Delivery Nasal Cannula Nasal Cannula O2 Flow Rate 2.0 2.0 08/21/19 11:00 Temp 97.6 97.6 Pulse 61 Resp 18 B/P (MAP) 133/73 (93) Pulse Ox 96 O2 Delivery Nasal Cannula O2 Flow Rate 2.0 Intake and Output 08/20/19 08/20/19 08/21/19 15:00 23:00 07:00 Intake Total 200 ml 800 ml 100 ml Output Total 200 ml 530 ml 360 ml Balance 0 ml 270 ml -260 ml HERNANDO PRESSLEY MD Aug 21, 2019 12:55
[2019-08-21] MEDS: HYDROcodone/APAP 5/325MG 1 TAB TABLET PO PRN (14:34)
[2019-08-21 15:16] VITALS: BP 150/80
[2019-08-21 19:31] VITALS: BP 150/76
[2019-08-21] MEDS: LATANOPROST 0.005% OPHTH SOLUTION 2.5ML BOTTLE. OU SCH (20:43)
[2019-08-21 22:46] VITALS: BP 135/71
[2019-08-22 03:07] VITALS: BP 135/71
[2019-08-22] MEDS: HYDROcodone/APAP 5/325MG 1 TAB TABLET PO PRN ×3 (06:55→21:31)
[2019-08-22 07:00] VITALS: BP 149/99
--- NOTE | 2019-08-22 08:19 | RAD ---
PORTABLE CHEST 1V INDICATION: Pneumothorax. COMPARISON STUDY: 4 05/01/1950. FINDINGS: Life Support Devices: Stable right chest tube. Lungs: Normal lung volume. No focal airspace disease. Normal pulmonary vasculature. Pleura: Stable small right apical pneumothorax. Heart and Mediastinum: Stable cardiomediastinal silhouette and great vessels. Bones and Soft Tissues: Stable regional skeleton and soft tissues. IMPRESSION: Stable small right apical pneumothorax with right chest tube in place. Electronically signed by: Gaurang Calles MD (08/22/2019 8:16 AM) [id number]
--- NOTE | 2019-08-22 09:14 | PDOC ---
PROGRESS NOTES Chief Complaint Chief Complaint A/P: Spontaneous pneumothorax after coughing Essential hypertension History of tobacco abuse COPD Plan: continue home meds Pulmonary following for tube management xray with persistant right ptx still has air leak Further recommendations based on the clinical course DVT prophylaxis with SCDs d/w rn History of Present Illness History of Present Illness Mr Bhatia is a 54yo M w/ PMHc COPD, HTN admitted for spontaneous pneumothorax on the right after coughing episode. S/p chest tube placement. No acute events reported overnight, case discussed with nursing staff patient in no acute distress no complaints during my visit. CXR with small apical PTX. Still with air leak with deep breathing or cough. Plan: Will cont to monitor with chest tube. If air leak persists beyond 48 hours will transfer to [address] surgery [facility] at [facility] Vitals Vitals Vital Signs Date Time Temp Pulse Resp B/P (MAP) Pulse Ox O2 Delivery O2 Flow Rate FiO2 08/22/19 07:00 97.5 86 20 149/99 (116) 95 Nasal Cannula 2.0 97.5 Physical Exam Physical Exam GEN.: No apparent distress. Alert and oriented. HEENT: Head is normocephalic, atraumatic NECK: Supple. LUNGS: Clear to auscultation. HEART: RRR, S1, S2 present. Peripheral pulses intact ABDOMEN: Soft, nontender. Positive bowel sounds. EXTREMITIES: Without any cyanosis. NEUROLOGIC: Normal speech, normal tone PSYCHIATRIC: Normal affect, normal mood. SKIN: No ulcerations General: Alert, Oriented X3, Cooperative, No acute distress Heart: Regular rate Lungs: Clear Abdomen: Normal bowel sounds, Soft, No tenderness, No hepatosplenomegaly Extremities: No clubbing, No cyanosis Skin: No rashes, No breakdown Assessment and Plan Assessmemt and Plan Problems Medical Problems: (1) Pneumothorax on right Status: Acute Comment Review of Relevant I have reviewed the following items kirsten (where applicable) has been applied. Medications Current Medications Lidocaine HCl (Xylocaine 1% Pf 30ml Vial) 30 ml 1X ONCE INJ Last administered on 08/16/19at 15:20; Start 08/16/19 at 14:45; Stop 08/16/19 at 14:46; Status DC Ondansetron HCl (Zofran) 4 mg PRN Q8HRS PRN IV NAUSEA/VOMITING; Start 08/16/19 at 16:15; Stop 08/17/19 at 16:14; Status DC Fentanyl Citrate (Fentanyl 2ml Vial) 50 mcg PRN Q1HR PRN IV PAIN; Start 08/16/19 at 16:15; Stop 08/17/19 at 16:14; Status DC Acetaminophen (Tylenol) 650 mg PRN Q4HRS PRN PO FEVER; Start 08/16/19 at 16:15; Stop 08/17/19 at 16:14; Status DC Amlodipine Besylate (Norvasc) 10 mg DAILY PO Last administered on 08/21/19 08:12; Start 08/17/19 at 09:00 Aspirin (Jodi Aspirin) 650 mg PRN Q12HRS PRN PO INFLAMATION; Start 08/16/19 at 21:30 Hydrochlorothiazide (Hydrodiuril) 25 mg DAILY PO Last administered on 08/21/19at 08:13; Start 08/17/19 at 09:00 Latanoprost (Xalatan) 2 drop HS OU Last administered on 08/21/19at 20:43; Start 08/16/19 at 22:00 Timolol Maleate (Timoptic 0.5% [facility]) 5 drop BID OU Last administered on 08/21/19 20:49; Start 08/16/19 at 22:00 Brimonidine Tartrate (Alphagan) 1 drop BID OU Last administered on 08/21/19 20:55; Start 08/17/19 at 10:30 Losartan Potassium (Cozaar) 100 mg DAILY PO Last administered on 08/21/19 08:12; Start 08/17/19 at 09:00 Ketorolac Tromethamine (Toradol 15mg Vial) 15 mg PRN Q6HRS PRN IVP PAIN Last administered on 08/21/19 08:07; Start 08/16/19 at 21:30; Stop 08/21/19 at 14:15; Status DC Dorzolamide HCl (Trusopt) 1 drop BID OU Last administered on 08/21/19 20:55; Start 08/17/19 at 21:00 Lidocaine HCl (Xylocaine-Mpf 1% 5ml Vial) 5 ml 1X ONCE INJ Last administered on 08/20/19at 16:48; Start 08/20/19 at 15:45; Stop 08/20/19 at 15:46; Status DC Midazolam HCl (Versed) 5 mg 1X ONCE IV Last administered on 08/20/19at 16:47; Start 08/20/19 at 16:00; Stop 08/20/19 at 16:01; Status DC Meperidine HCl (Demerol) 100 mg 1X ONCE IV Last administered on 08/20/19at 16:48; Start 08/20/19 at 16:00; Stop 08/20/19 at 16:01; Status DC Acetaminophen/ Hydrocodone Bitart (Lortab 5/325) 1 tab PRN Q4HRS PRN PO PAIN Last administered on 08/22/19at 06:55; Start 08/21/19 at 14:15 Active Scripts Active Reported Timolol Maleate 5 Ml Drops 1 BID Simbrinza 1%-0.2% Eye Drops (Brinzolamide/Brimonid Tart) 8 Ml Drops.susp 0.2 BID Hydrochlorothiazide 25 Mg Tablet 25 DAILY Latanoprost 2.5 Ml Drops 2.5 HS Aspirin 325 Mg Tablet 650 Mg PO PRN Losartan Potassium 100 Mg Tablet 100 Mg PO DAILY LAST DOSE GIVEN: DATE: 09/14/15 TIME: 09 AM NEXT DOSE DUE: DATE: 09/15/15 TIME: 09 AM Norvasc (Amlodipine Besylate) 10 Mg Tablet 10 Mg PO DAILY LAST DOSE GIVEN: DATE: 09/14/15 TIME: 09 AM NEXT DOSE DUE: DATE: 09/15/15 TIME: 09 AM Vitals/I & O Vital Sign - Last 24 Hours 08/21/19 08/21/19 08/21/19 08/21/19 11:00 14:34 15:16 15:45 Temp 97.6 98.6 97.6 98.6 Pulse 61 69 Resp 18 18 B/P (MAP) 133/73 (93) 150/80 (103) Pulse Ox 96 94 O2 Delivery Nasal Cannula Room Air Nasal Cannula Room Air O2 Flow Rate 2.0 2.0 2.0 08/21/19 08/21/19 08/21/19 08/22/19 19:31 20:00 22:46 03:07 Temp 98.6 98.6 98.6 98.6 98.6 98.6 Pulse 69 91 91 Resp 18 18 18 B/P (MAP) 150/76 (100) 135/71 (92) 135/71 (92) Pulse Ox 94 95 95 O2 Delivery Nasal Cannula Nasal Cannula Nasal Cannula Nasal Cannula O2 Flow Rate 2.0 2.0 2.0 2.0 08/22/19 08/22/19 06:55 07:00 Temp 97.5 97.5 Pulse 86 Resp 20 B/P (MAP) 149/99 (116) Pulse Ox 95 O2 Delivery Nasal Cannula Nasal Cannula O2 Flow Rate 2.0 Intake and Output 08/21/19 08/21/19 08/22/19 15:00 23:00 07:00 Intake Total 400 ml 400 ml Output Total 650 ml 300 ml 766 ml Balance -650 ml 100 ml -366 ml CRISELDA DAVIS MD Aug 22, 2019 09:13
[2019-08-22] MEDS: TIMOLOL 0.5% OPHTH SOLUTION 5ML BOTTLE. OU SCH ×2 (09:17→21:08)
[2019-08-22] MEDS: BRIMONIDINE 0.2% OPHTH SOLUTION 5ML BOTTLE. OU SCH ×2 (09:17→21:08)
[2019-08-22] MEDS: DORZOLAMIDE 2% OPHTH SOLUTION 10ML BOTTLE. OU SCH ×2 (09:18→21:08)
[2019-08-22] MEDS: hydroCHLOROthiazide 25 MG TABLET PO SCH (09:18)
[2019-08-22] MEDS: amLODIPine BESYLATE 10 MG TABLET PO SCH (09:18)
[2019-08-22] MEDS: LOSARTAN POTASSIUM 50 MG TABLET. PO SCH (09:19)
--- NOTE | 2019-08-22 11:24 | PDOC ---
PULMONARY PROGRESS NOTES Subjective Patient with no increasing shortness of air. No chest pain, mild non-productive cough persistent air leak Vitals Vital Signs Date Time Temp Pulse Resp B/P (MAP) Pulse Ox O2 Delivery O2 Flow Rate FiO2 08/22/19 09:20 18 95 Nasal Cannula 08/22/19 09:19 86 149/99 08/22/19 07:00 97.5 2.0 97.5 ROS: No Nausea, No Chest Pain, No Abdominal Pain, No Increase Cough General: Alert, Oriented X4, No acute distress Lungs: Clear Cardiovascular: S1, S2 Abdomen: Soft Neuro Exam: Alert Extremities: No Edema Skin: Warm Medications Active Scripts Medications Dose Route/Sig Max Daily Dose Days Date Category Dose Instructions Timolol Maleate 5 Ml Drops 5 BID 08/16/19 Reported Simbrinza 1%-0.2% Eye Drops (Brinzolamide/Brimonid Tart) 8 Ml Drops.susp 0.2 BID 08/16/19 Reported Hydrochlorothiazide 25 Mg Tablet 25 DAILY 08/16/19 Reported Latanoprost 2.5 Ml Drops 2.5 HS 08/16/19 Reported Aspirin 325 Mg Tablet 650 Mg PO PRN 09/11/17 Reported Losartan Potassium 100 Mg Tablet 100 Mg PO DAILY 05/02/13 Reported LAST DOSE GIVEN: DATE: 09/14/15 TIME: 09 AM NEXT DOSE DUE: DATE: 09/15/15 TIME: 09 AM Norvasc (Amlodipine Besylate) 10 Mg Tablet 10 Mg PO DAILY 05/02/13 Reported LAST DOSE GIVEN: DATE: 09/14/15 TIME: 09 AM NEXT DOSE DUE: DATE: 09/15/15 TIME: 09 AM Comments cxr 08/21 small right apical PTX Impression . IMPRESSION: 1. Spontaneous pneumothorax with persistent air leak, s/p chest tube 24F 2. Chronic obstructive pulmonary disease. 3. Tobacco dependence, in remission. 4. Hypertension. [address] chest with apical blebs Plan . Supplemental oxygen to oxygen sats above 92% Chest tube dislodged 08/20/2019, required replacement of Chest tube with #24 qatari tube Continue chest tube to wall suction, persistent air leak, water seal once air leak on wall function resolves. May need endobronchial valve D/W RN / PCP RACHEL THAYER MD Aug 22, 2019 11:24
[2019-08-22 11:46] VITALS: BP 149/98
--- NOTE | 2019-08-22 12:47 | NUR ---
SW following. Discussed with RN, pt will be here until Thursday (08/24/2019), if not improving pt may need to transfer to [facility] for a possible procedure, if the procedure is still being done at [place]. SW will continue to follow.
[2019-08-22 15:00] VITALS: BP 151/87
[2019-08-22 19:23] VITALS: BP 148/83
[2019-08-22] MEDS: LATANOPROST 0.005% OPHTH SOLUTION 2.5ML BOTTLE. OU SCH (21:09)
[2019-08-22 22:55] VITALS: BP 124/81
[2019-08-23] MEDS: HYDROcodone/APAP 5/325MG 1 TAB TABLET PO PRN ×4 (03:15→19:20)
[2019-08-23 03:28] VITALS: BP 130/77
[2019-08-23 07:00] VITALS: BP 122/83
--- NOTE | 2019-08-23 08:08 | PDOC ---
PROGRESS NOTES Chief Complaint Chief Complaint A/P: Spontaneous pneumothorax after coughing Essential hypertension History of tobacco abuse COPD Plan: continue home meds Pulmonary following for tube management xray with persistant right ptx still has air leak Further recommendations based on the clinical course DVT prophylaxis with SCDs d/w rn History of Present Illness History of Present Illness Mr Bhatia is a 54yo M w/ PMHc COPD, HTN admitted for spontaneous pneumothorax on the right after coughing episode. S/p chest tube placement. 08/21: No acute events reported overnight, case discussed with nursing staff patient in no acute distress no complaints during my visit. CXR with small apical PTX. Still with air leak with deep breathing or cough. CXR with persistent apical right PTX. Still with air leak, on suction. He is c/o dry nose, taking his O2 off. otherwise some chest discomfort. Plan: Will cont to monitor with chest tube. If air leak persists beyond 48 hours will transfer to CT surgery likely at [facility] Vitals Vitals Vital Signs Date Time Temp Pulse Resp B/P (MAP) Pulse Ox O2 Delivery O2 Flow Rate FiO2 08/23/19 07:00 97.6 62 16 122/83 (96) 92 Room Air 97.6 08/23/19 03:28 2.0 Physical Exam Physical Exam GEN.: No apparent distress. Alert and oriented. HEENT: Head is normocephalic, atraumatic NECK: Supple. LUNGS: Clear to auscultation. HEART: RRR, S1, S2 present. Peripheral pulses intact ABDOMEN: Soft, nontender. Positive bowel sounds. EXTREMITIES: Without any cyanosis. NEUROLOGIC: Normal speech, normal tone PSYCHIATRIC: Normal affect, normal mood. SKIN: No ulcerations General: Alert, Oriented X3, Cooperative, No acute distress Heart: Regular rate Lungs: Clear Abdomen: Normal bowel sounds, Soft, No tenderness, No hepatosplenomegaly Extremities: No clubbing, No cyanosis Skin: No rashes, No breakdown Assessment and Plan Assessmemt and Plan Problems Medical Problems: (1) Pneumothorax on right Status: Acute Comment Review of Relevant I have reviewed the following items kirsten (where applicable) has been applied. Medications Current Medications Lidocaine HCl (Xylocaine 1% Pf 30ml Vial) 30 ml 1X ONCE INJ Last administered on 08/16/19at 15:20; Start 08/16/19 at 14:45; Stop 08/16/19 at 14:46; Status DC Ondansetron HCl (Zofran) 4 mg PRN Q8HRS PRN IV NAUSEA/VOMITING; Start 08/16/19 at 16:15; Stop 08/17/19 at 16:14; Status DC Fentanyl Citrate (Fentanyl 2ml Vial) 50 mcg PRN Q1HR PRN IV PAIN; Start 08/16/19 at 16:15; Stop 08/17/19 at 16:14; Status DC Acetaminophen (Tylenol) 650 mg PRN Q4HRS PRN PO FEVER; Start 08/16/19 at 16:15; Stop 08/17/19 at 16:14; Status DC Amlodipine Besylate (Norvasc) 10 mg DAILY PO Last administered on 08/22/19 09:18; Start 08/17/19 at 09:00 Aspirin (Jodi Aspirin) 650 mg PRN Q12HRS PRN PO INFLAMATION; Start 08/16/19 at 21:30 Hydrochlorothiazide (Hydrodiuril) 25 mg DAILY PO Last administered on 08/22/19at 09:18; Start 08/17/19 at 09:00 Latanoprost (Xalatan) 2 drop HS OU Last administered on 08/22/19 21:09; Start 08/16/19 at 22:00 Timolol Maleate (Timoptic 0.5% [facility]) 5 drop BID OU Last administered on 08/22/19 21:08; Start 08/16/19 at 22:00 Brimonidine Tartrate (Alphagan) 1 drop BID OU Last administered on 08/22/19 21:08; Start 08/17/19 at 10:30 Losartan Potassium (Cozaar) 100 mg DAILY PO Last administered on 08/22/19 09:19; Start 08/17/19 at 09:00 Ketorolac Tromethamine (Toradol 15mg Vial) 15 mg PRN Q6HRS PRN IVP PAIN Last administered on 08/21/19 08:07; Start 08/16/19 at 21:30; Stop 08/21/19 at 14:15; Status DC Dorzolamide HCl (Trusopt) 1 drop BID OU Last administered on 08/22/19 21:08; Start 08/17/19 at 21:00 Lidocaine HCl (Xylocaine-Mpf 1% 5ml Vial) 5 ml 1X ONCE INJ Last administered on 08/20/19at 16:48; Start 08/20/19 at 15:45; Stop 08/20/19 at 15:46; Status DC Midazolam HCl (Versed) 5 mg 1X ONCE IV Last administered on 08/20/19at 16:47; Start 08/20/19 at 16:00; Stop 08/20/19 at 16:01; Status DC Meperidine HCl (Demerol) 100 mg 1X ONCE IV Last administered on 08/20/19at 16:48; Start 08/20/19 at 16:00; Stop 08/20/19 at 16:01; Status DC Acetaminophen/ Hydrocodone Bitart (Lortab 5/325) 1 tab PRN Q4HRS PRN PO PAIN Last administered on 08/23/19at 03:15; Start 08/21/19 at 14:15 Active Scripts Active Reported Timolol Maleate 5 Ml Drops 1 BID Simbrinza 1%-0.2% Eye Drops (Brinzolamide/Brimonid Tart) 8 Ml Drops.susp 0.2 BID Hydrochlorothiazide 25 Mg Tablet 25 DAILY Latanoprost 2.5 Ml Drops 2.5 HS Aspirin 325 Mg Tablet 650 Mg PO PRN Losartan Potassium 100 Mg Tablet 100 Mg PO DAILY LAST DOSE GIVEN: DATE: 09/14/15 TIME: 09 AM NEXT DOSE DUE: DATE: 09/15/15 TIME: 09 AM Norvasc (Amlodipine Besylate) 10 Mg Tablet 10 Mg PO DAILY LAST DOSE GIVEN: DATE: 09/14/15 TIME: 09 AM NEXT DOSE DUE: DATE: 09/15/15 TIME: 09 AM Vitals/I & O Vital Sign - Last 24 Hours 08/22/19 08/22/19 08/22/19 08/22/19 09:18 09:19 09:20 11:46 Temp 98.1 98.1 Pulse 86 86 63 Resp 18 20 B/P (MAP) 149/99 149/99 149/98 (115) Pulse Ox 95 96 O2 Delivery Nasal Cannula Nasal Cannula O2 Flow Rate 2.0 08/22/19 08/22/19 08/22/19 08/22/19 15:00 17:32 18:32 19:23 Temp 98.4 97.6 98.4 97.6 Pulse 65 69 Resp 20 20 18 18 B/P (MAP) 151/87 (108) 148/83 (104) Pulse Ox 96 96 93 94 O2 Delivery Nasal Cannula Nasal Cannula Room Air Nasal Cannula O2 Flow Rate 2.0 2.0 08/22/19 08/22/19 08/22/19 08/22/19 20:10 21:31 22:31 22:55 Temp 97.8 97.8 Pulse 61 Resp 18 B/P (MAP) 124/81 (95) Pulse Ox 93 94 93 O2 Delivery Room Air Room Air Room Air Nasal Cannula O2 Flow Rate 2.0 08/23/19 08/23/19 08/23/19 08/23/19 03:15 03:28 04:15 07:00 Temp 97.7 97.6 97.7 97.6 Pulse 68 62 Resp 18 20 16 B/P (MAP) 130/77 (94) 122/83 (96) Pulse Ox 94 93 94 92 O2 Delivery Room Air Nasal Cannula Room Air Room Air O2 Flow Rate 2.0 Intake and Output 08/22/19 08/22/19 08/23/19 15:00 23:00 07:00 Intake Total 650 ml 1400 ml 550 ml Output Total 700 ml 2400 ml 2020 ml Balance -50 ml -1000 ml -1470 ml CRISELDA DAVIS MD Aug 23, 2019 08:08
--- NOTE | 2019-08-23 08:09 | RAD ---
Single AP view of the chest. Comparison: 08/22/2019. Indication: Chest tube and pneumothorax Findings: Right-sided chest tube is reidentified. There is mild subcutaneous air which is stable. The heart is not enlarged. Small right apical pneumothorax persists. No air space or interstitial disease. Impression: 1. Persistent small right apical pneumothorax is unchanged. Electronically signed by: Babar Reddy MD (08/23/2019 8:06 AM) [id number]
[2019-08-23] MEDS: amLODIPine BESYLATE 10 MG TABLET PO SCH (08:35)
[2019-08-23] MEDS: hydroCHLOROthiazide 25 MG TABLET PO SCH (08:35)
[2019-08-23] MEDS: TIMOLOL 0.5% OPHTH SOLUTION 5ML BOTTLE. OU SCH ×2 (08:36→21:00)
[2019-08-23] MEDS: LOSARTAN POTASSIUM 50 MG TABLET. PO SCH (08:36)
[2019-08-23] MEDS: DORZOLAMIDE 2% OPHTH SOLUTION 10ML BOTTLE. OU SCH ×2 (08:37→21:00)
[2019-08-23] MEDS: BRIMONIDINE 0.2% OPHTH SOLUTION 5ML BOTTLE. OU SCH ×2 (08:37→21:00)
[2019-08-23 10:29] VITALS: BP 124/76
--- NOTE | 2019-08-23 10:36 | PDOC ---
PULMONARY PROGRESS NOTES Subjective Patient with no increasing shortness of air. No chest pain, mild non-productive cough persistent air leak Vitals Vital Signs Date Time Temp Pulse Resp B/P (MAP) Pulse Ox O2 Delivery O2 Flow Rate FiO2 08/23/19 10:29 97.7 71 16 124/76 (92) 92 Room Air 97.7 08/23/19 08:35 2.0 ROS: No Nausea, No Chest Pain, No Abdominal Pain, No Increase Cough General: Alert, Oriented X4, No acute distress Lungs: Clear Cardiovascular: S1, S2 Abdomen: Soft Neuro Exam: Alert Extremities: No Edema Skin: Warm Medications Active Scripts Medications Dose Route/Sig Max Daily Dose Days Date Category Dose Instructions Timolol Maleate 5 Ml Drops 5 BID 08/16/19 Reported Simbrinza 1%-0.2% Eye Drops (Brinzolamide/Brimonid Tart) 8 Ml Drops.susp 0.2 BID 08/16/19 Reported Hydrochlorothiazide 25 Mg Tablet 25 DAILY 08/16/19 Reported Latanoprost 2.5 Ml Drops 2.5 HS 08/16/19 Reported Aspirin 325 Mg Tablet 650 Mg PO PRN 09/11/17 Reported Losartan Potassium 100 Mg Tablet 100 Mg PO DAILY 05/02/13 Reported LAST DOSE GIVEN: DATE: 09/14/15 TIME: 09 AM NEXT DOSE DUE: DATE: 09/15/15 TIME: 09 AM Norvasc (Amlodipine Besylate) 10 Mg Tablet 10 Mg PO DAILY 05/02/13 Reported LAST DOSE GIVEN: DATE: 09/14/15 TIME: 09 AM NEXT DOSE DUE: DATE: 09/15/15 TIME: 09 AM Comments cxr 08/22 small right apical PTX Impression . IMPRESSION: 1. Spontaneous pneumothorax with persistent air leak, s/p chest tube 24F 2. Chronic obstructive pulmonary disease. 3. Tobacco dependence, in remission. 4. Hypertension. [address] chest with apical blebs Plan . Supplemental oxygen to oxygen sats above 92% Chest tube dislodged 08/20/2019, required replacement of Chest tube with #24 F tube Continue chest tube to wall suction, persistent air leak, water seal once air leak on wall function resolves. May need endobronchial valve will call Dr Cole for his opinion D/W RN / PCP Addend: d/w Dr Cole at [place]. Patient accepted for Bronch with endobronchial valve. Informed RN. will transfer in am. Procedure RACHEL THAYER MD Aug 23, 2019 10:36
--- NOTE | 2019-08-23 11:48 | NUR ---
SS following up with discharge planning. SS discussed with pt RN and physician. Pt needing endobronchial valve. Dr. Amador speaking with [facility] to see if procedure can be done. Dr. Valero to notify SS when ready to initiate transfer. SS will continue to follow for discharge planning.
[2019-08-23 15:00] VITALS: BP 129/73
[2019-08-23 19:56] VITALS: BP 128/80
[2019-08-23] MEDS ORDERED: oxyCODONE IR 5 MG TABLET PO PRN (21:00)
[2019-08-23] MEDS: LATANOPROST 0.005% OPHTH SOLUTION 2.5ML BOTTLE. OU SCH (21:00)
[2019-08-23] MEDS ORDERED: oxyCODONE ER 10 MG TAB.ER.12H PO ONE (21:30)
[2019-08-23 23:27] VITALS: BP 125/77
[2019-08-24 03:30] VITALS: BP 132/80
[2019-08-24] MEDS: HYDROcodone/APAP 5/325MG 1 TAB TABLET PO PRN ×2 (04:55→11:30)
[2019-08-24 07:00] VITALS: BP 144/85
--- NOTE | 2019-08-24 08:18 | PDOC ---
PROGRESS NOTES Chief Complaint Chief Complaint A/P: Spontaneous pneumothorax after coughing Essential hypertension History of tobacco abuse COPD Plan: continue home meds Pulmonary following for tube management xray with persistant right ptx still has air leak Further recommendations based on the clinical course DVT prophylaxis with SCDs d/w rn History of Present Illness History of Present Illness Mr Bhatia is a 54yo M w/ PMHc COPD, HTN admitted for spontaneous pneumothorax on the right after coughing episode. S/p chest tube placement. 08/21: No acute events reported overnight, case discussed with nursing staff patient in no acute distress no complaints during my visit. CXR with small apical PTX. Still with air leak with deep breathing or cough. 08/22: CXR with persistent apical right PTX. Still with air leak, on suction. He is c/o dry nose, taking his O2 off. otherwise some chest discomfort. Chest x-ray worse today. Interval increase in size of a right pneumothorax now with 2.2 cm pleural separation, previously 0.9 cm. Feeling improved Plan: Will transfer to CT surgery likely at [facility] Vitals Vitals Vital Signs Date Time Temp Pulse Resp B/P (MAP) Pulse Ox O2 Delivery O2 Flow Rate FiO2 08/24/19 07:00 98.4 64 18 144/85 (104) 94 Room Air 98.4 08/24/19 03:30 1.0 Physical Exam Physical Exam GEN.: No apparent distress. Alert and oriented. HEENT: Head is normocephalic, atraumatic NECK: Supple. LUNGS: Clear to auscultation. HEART: RRR, S1, S2 present. Peripheral pulses intact ABDOMEN: Soft, nontender. Positive bowel sounds. EXTREMITIES: Without any cyanosis. NEUROLOGIC: Normal speech, normal tone PSYCHIATRIC: Normal affect, normal mood. SKIN: No ulcerations General: Alert, Oriented X3, Cooperative, No acute distress Heart: Regular rate Lungs: Clear Abdomen: Normal bowel sounds, Soft, No tenderness, No hepatosplenomegaly Extremities: No clubbing, No cyanosis Skin: No rashes, No breakdown Assessment and Plan Assessmemt and Plan Problems Medical Problems: (1) Pneumothorax on right Status: Acute Comment Review of Relevant I have reviewed the following items kirsten (where applicable) has been applied. Medications Current Medications Lidocaine HCl (Xylocaine 1% Pf 30ml Vial) 30 ml 1X ONCE INJ Last administered on 08/16/19at 15:20; Start 08/16/19 at 14:45; Stop 08/16/19 at 14:46; Status DC Ondansetron HCl (Zofran) 4 mg PRN Q8HRS PRN IV NAUSEA/VOMITING; Start 08/16/19 at 16:15; Stop 08/17/19 at 16:14; Status DC Fentanyl Citrate (Fentanyl 2ml Vial) 50 mcg PRN Q1HR PRN IV PAIN; Start 08/16/19 at 16:15; Stop 08/17/19 at 16:14; Status DC Acetaminophen (Tylenol) 650 mg PRN Q4HRS PRN PO FEVER; Start 08/16/19 at 16:15; Stop 08/17/19 at 16:14; Status DC Amlodipine Besylate (Norvasc) 10 mg DAILY PO Last administered on 08/23/19at 08:35; Start 08/17/19 at 09:00 Aspirin (Jodi Aspirin) 650 mg PRN Q12HRS PRN PO INFLAMATION; Start 08/16/19 at 21:30 Hydrochlorothiazide (Hydrodiuril) 25 mg DAILY PO Last administered on 08/23/19at 08:35; Start 08/17/19 at 09:00 Latanoprost (Xalatan) 2 drop HS OU Last administered on 08/23/19 21:00; Start 08/16/19 at 22:00 Timolol Maleate (Timoptic 0.5% Oph) 5 drop BID OU Last administered on 08/23/19 21:00; Start 08/16/19 at 22:00 Brimonidine Tartrate (Alphagan) 1 drop BID OU Last administered on 08/23/19at 21:00; Start 08/17/19 at 10:30 Losartan Potassium (Cozaar) 100 mg DAILY PO Last administered on 08/23/19 08:36; Start 08/17/19 at 09:00 Ketorolac Tromethamine (Toradol 15mg Vial) 15 mg PRN Q6HRS PRN IVP PAIN Last administered on 08/21/19 08:07; Start 08/16/19 at 21:30; Stop 08/21/19 at 14:15; Status DC Dorzolamide HCl (Trusopt) 1 drop BID OU Last administered on 4/14/20at 21:00; Start 08/17/19 at 21:00 Lidocaine HCl (Xylocaine-Mpf 1% 5ml Vial) 5 ml 1X ONCE INJ Last administered on 08/20/19at 16:48; Start 08/20/19 at 15:45; Stop 08/20/19 at 15:46; Status DC Midazolam HCl (Versed) 5 mg 1X ONCE IV Last administered on 08/20/19at 16:47; Start 08/20/19 at 16:00; Stop 08/20/19 at 16:01; Status DC Meperidine HCl (Demerol) 100 mg 1X ONCE IV Last administered on 08/20/19at 16:48; Start 08/20/19 at 16:00; Stop 08/20/19 at 16:01; Status DC Acetaminophen/ Hydrocodone Bitart (Lortab 5/325) 1 tab PRN Q4HRS PRN PO PAIN Last administered on 08/24/19at 04:55; Start 08/21/19 at 14:15 Oxycodone HCl (OxyCONTIN) 10 mg 1X ONCE PO Last administered on 08/23/19at 21:22; Start 08/23/19 at 21:30; Stop 08/23/19 at 21:31; Status DC Oxycodone HCl (Roxicodone) 5 mg PRN Q6HRS PRN PO SEVERE PAIN 7-10; Start 08/23/19 at 21:00 Active Scripts Active Reported Timolol Maleate 5 Ml Drops 1 BID Simbrinza 1%-0.2% Eye Drops (Brinzolamide/Brimonid Tart) 8 Ml Drops.susp 0.2 BID Hydrochlorothiazide 25 Mg Tablet 25 DAILY Latanoprost 2.5 Ml Drops 2.5 HS Aspirin 325 Mg Tablet 650 Mg PO PRN Losartan Potassium 100 Mg Tablet 100 Mg PO DAILY LAST DOSE GIVEN: DATE: 09/14/15 TIME: 09 AM NEXT DOSE DUE: DATE: 09/15/15 TIME: 09 AM Norvasc (Amlodipine Besylate) 10 Mg Tablet 10 Mg PO DAILY LAST DOSE GIVEN: DATE: 09/14/15 TIME: 09 AM NEXT DOSE DUE: DATE: 09/15/15 TIME: 09 AM Vitals/I & O Vital Sign - Last 24 Hours 08/23/19 08/23/19 08/23/19 08/23/19 08:35 08:35 08:36 10:29 Temp 97.7 97.7 Pulse 62 62 71 Resp 16 B/P (MAP) 122/83 122/83 124/76 (92) Pulse Ox 92 92 O2 Delivery Room Air Room Air O2 Flow Rate 2.0 08/23/19 08/23/19 08/23/19 08/23/19 11:27 14:12 15:00 16:16 Temp 97.8 97.8 Pulse 64 Resp 16 B/P (MAP) 129/73 (91) Pulse Ox 92 92 95 92 O2 Delivery Room Air Room Air Nasal Cannula Room Air O2 Flow Rate 2.0 2.0 1.0 2.0 08/23/19 08/23/19 08/23/19 08/23/19 19:20 19:56 19:57 20:34 Temp 97.4 97.4 Pulse 68 Resp 20 16 16 B/P (MAP) 128/80 (96) Pulse Ox 93 94 93 O2 Delivery Room Air Nasal Cannula Room Air O2 Flow Rate 1.0 08/23/19 08/23/19 08/24/19 08/24/19 21:22 23:27 01:22 03:30 Temp 97.5 97.4 97.5 97.4 Pulse 65 63 Resp 18 18 20 18 B/P (MAP) 125/77 (93) 132/80 (97) Pulse Ox 93 96 94 91 O2 Delivery Room Air Nasal Cannula Room Air Nasal Cannula O2 Flow Rate 1.0 1.0 08/24/19 08/24/19 08/24/19 04:55 05:55 07:00 Temp 98.4 98.4 Pulse 64 Resp 20 20 18 B/P (MAP) 144/85 (104) Pulse Ox 93 93 94 O2 Delivery Room Air Intake and Output 08/23/19 08/23/19 08/24/19 15:00 23:00 07:00 Intake Total 938 ml 1040 ml 1250 ml Output Total 300 ml 800 ml 925 ml Balance 638 ml 240 ml 325 ml CRISELDA DAVIS MD Aug 24, 2019 08:18
--- NOTE | 2019-08-24 08:20 | RAD ---
AP view of the chest. Comparison: Chest radiograph dated 08/23/2019. Indication: Pneumothorax follow-up Findings: Interval increase in size of a right pneumothorax now with 2.2 cm pleural separation, previously 0.9 cm. Unchanged right chest tube. Unchanged lung volume. No new consolidation. Unchanged pulmonary vasculature. No pleural effusion or pneumothorax. The cardiomediastinal silhouette and great vessels are unchanged. Small amount of right chest wall subcutaneous air. IMPRESSION: Interval increase in size of a right pneumothorax now with 2.2 cm pleural separation, previously 0.9 cm. Unchanged right chest tube. The findings were reported to patient's nurse, Tu, at 08/24/2019 8:16 AM. FOR INTERNAL CODING PURPOSES RESULT CODE: (C) Electronically signed by: Otis Pedro MD (08/24/2019 8:17 AM) [id number]
[2019-08-24] MEDS: DORZOLAMIDE 2% OPHTH SOLUTION 10ML BOTTLE. OU SCH (08:59)
[2019-08-24] MEDS: BRIMONIDINE 0.2% OPHTH SOLUTION 5ML BOTTLE. OU SCH (08:59)
[2019-08-24] MEDS: LOSARTAN POTASSIUM 50 MG TABLET. PO SCH (08:59)
[2019-08-24] MEDS: TIMOLOL 0.5% OPHTH SOLUTION 5ML BOTTLE. OU SCH (08:59)
[2019-08-24] MEDS: hydroCHLOROthiazide 25 MG TABLET PO SCH (09:00)
[2019-08-24] MEDS: amLODIPine BESYLATE 10 MG TABLET PO SCH (09:03)
--- NOTE | 2019-08-24 09:27 | PDOC ---
PULMONARY PROGRESS NOTES Subjective Patient with no increasing shortness of air. No chest pain, mild non-productive cough persistent air leak Vitals Vital Signs Date Time Temp Pulse Resp B/P (MAP) Pulse Ox O2 Delivery O2 Flow Rate FiO2 08/24/19 09:03 64 144/85 08/24/19 07:00 98.4 18 94 Room Air 98.4 08/24/19 03:30 1.0 ROS: No Nausea, No Chest Pain, No Abdominal Pain, No Increase Cough General: Alert, Oriented X4, No acute distress Lungs: Clear Cardiovascular: S1, S2 Abdomen: Soft Neuro Exam: Alert Extremities: No Edema Skin: Warm Medications Active Scripts Medications Dose Route/Sig Max Daily Dose Days Date Category Dose Instructions Timolol Maleate 5 Ml Drops 5 BID 08/16/19 Reported Simbrinza 1%-0.2% Eye Drops (Brinzolamide/Brimonid Tart) 8 Ml Drops.susp 0.2 BID 08/16/19 Reported Hydrochlorothiazide 25 Mg Tablet 25 DAILY 08/16/19 Reported Latanoprost 2.5 Ml Drops 2.5 HS 08/16/19 Reported Aspirin 325 Mg Tablet 650 Mg PO PRN 09/11/17 Reported Losartan Potassium 100 Mg Tablet 100 Mg PO DAILY 05/02/13 Reported LAST DOSE GIVEN: DATE: 09/14/15 TIME: 09 AM NEXT DOSE DUE: DATE: 09/15/15 TIME: 09 AM Norvasc (Amlodipine Besylate) 10 Mg Tablet 10 Mg PO DAILY 05/02/13 Reported LAST DOSE GIVEN: DATE: 09/14/15 TIME: 09 AM NEXT DOSE DUE: DATE: 09/15/15 TIME: 09 AM Comments cxr 08/23 right PTX, slightly increased Impression . IMPRESSION: 1. Spontaneous right sided pneumothorax with persistent air leak, s/p chest tube 24F 2. Chronic obstructive pulmonary disease. 3. Tobacco dependence, in remission. 4. Hypertension. [address] chest with apical blebs Plan . Supplemental oxygen to oxygen sats above 92% Chest tube dislodged 08/20/2019, required replacement of Chest tube with #24 F tube 08/20 Continue chest tube to wall suction, persistent air leak, D/W Dr De La Torre. Will be a good candidate for endobronchial valve Transfer to [facility] today D/W RN / PCP RACHEL THAYER MD Aug 24, 2019 09:27
[2019-08-24 10:31] VITALS: BP 137/79
--- NOTE | 2019-08-24 10:33 | NUR ---
SS following up with discharge planning. Dr. Amador discussed with [facility]. Pt accepted at [facility]. Accepting physician, Dr. Castro De La Torre. Report# [phone]. SS spoke with Lenny in the transfer team, . SS faxed face sheet to fax# [phone] by request. Pt will discharge today and transfer to [facility] at 1400 via [facility] transport. Packet, [facility] form, and transfer form on chart. Pt's RN and pt notified.
--- NOTE | 2019-08-24 11:00 | NUR ---
Report given to nurse Rosa at the [facility]. Awaits [facility].
--- NOTE | 2019-08-24 12:08 | PDOC3 ---
Discharge Summary Visit Information Date of Admission: Aug 16, 2019 Date of Discharge: Aug 24, 2019 Admitting Diagnosis: Right pneumothorax Final Diagnosis Problems Medical Problems: (1) Pneumothorax on right Status: Acute Brief Hospital Course Allergies Allergies Coded Allergies Type Severity Reaction Last Updated Verified Penicillins Allergy Intermediate hives 10/06/17 Yes oxycodone Adverse Reaction Severe Itching 08/24/19 Yes Vital Signs Vital Signs Date Time Temp Pulse Resp B/P (MAP) Pulse Ox O2 Delivery O2 Flow Rate FiO2 08/24/19 11:30 20 97 Room Air 08/24/19 10:31 97.3 63 137/79 (98) 97.3 08/24/19 03:30 1.0 Brief Hospital Course Mr Bhatia is a 54yo M w/ PMHc COPD, HTN admitted for spontaneous pneumothorax on the right after coughing episode. S/p chest tube placement. 08/21: No acute events reported overnight, case discussed with nursing staff patient in no acute distress no complaints during my visit. CXR with small apical PTX. Still with air leak with deep breathing or cough. 08/22: CXR with persistent apical right PTX. Still with air leak, on suction. He is c/o dry nose, taking his O2 off. otherwise some chest discomfort. Chest x-ray worse today. Interval increase in size of a right pneumothorax now with 2.2 cm pleural separation, previously 0.9 cm. Feeling improved Problem list: Spontaneous pneumothorax after coughing Essential hypertension History of tobacco abuse COPD Plan: Will transfer to CT surgery at [facility] for consideration of endobronchial valve Greater than 30 minutes spent on d/c Discharge Information Condition at Discharge: Improved Follow Up: Weeks (1) Disposition/Orders: D/C to Another Facility ([facility]) Scheduled Amlodipine Besylate (Norvasc) 10 Mg Tablet, 10 MG PO DAILY for blood pressure, (Reported) LAST DOSE GIVEN: DATE: 09/14/15 TIME: 09 AM NEXT DOSE DUE: DATE: 09/15/15 TIME: 09 AM Entered as Reported by: JESUS ELIAS on 05/02/13 1410 Last Action: Continued on 08/16/192122 by CHARLES DAY MD Brinzolamide/Brimonid Tart (Simbrinza 1%-0.2% Eye Drops) 8 Ml Drops.susp, 0.2 BID for , (Reported) Entered as Reported by: Diane Griggs on 08/16/191928 Last Action: Converted on 08/16/192122 by CHARLES DAY MD Hydrochlorothiazide (Hydrochlorothiazide) 25 Mg Tablet, 25 DAILY for , (Reported) Entered as Reported by: Diane Griggs on 08/16/191928 Last Action: Continued on 08/16/192122 by CHARLES DAY MD Latanoprost (Latanoprost) 2.5 Ml Drops, 2.5 HS for , (Reported) Entered as Reported by: Diane Griggs on 08/16/191928 Last Action: Continued on 08/16/192122 by CHARLES DAY MD Losartan Potassium (Losartan Potassium) 100 Mg Tablet, 100 MG PO DAILY for blood pressure , (Reported) LAST DOSE GIVEN: DATE: 09/14/15 TIME: 09 AM NEXT DOSE DUE: DATE: 09/15/15 TIME: 09 AM Entered as Reported by: JESUS ELIAS on 05/02/13 1410 Last Action: Converted on 08/16/192122 by CHARLES DAY MD Timolol Maleate (Timolol Maleate) 5 Ml Drops, 1 BID for , (Reported) Entered as Reported by: Diane Griggs on 08/16/191928 Last Action: Edited on 08/17/191922 by Diane Griggs Scheduled PRN Aspirin (Aspirin) 325 Mg Tablet, 650 MG PO for HEADACHE, (Reported) Entered as Reported by: JESUS ELIAS on 09/11/17 0850 Last Action: Continued on 08/16/192122 by MD SUSAN JENKINS CHRISTOPHER S MD Aug 24, 2019 12:08
--- NOTE | 2019-08-24 12:10 | SNU/HH DC ---
DISCHARGE ORDERS DISCHARGE INFORMATION: DISCHARGE DATE: Aug 24, 2019 FINAL DIAGNOSIS Problems Medical Problems: (1) Pneumothorax on right Status: Acute CONDITION ON DISCHARGE: Stable CODE STATUS: Code Status: Full POST DISCHARGE ORDERS: ACTIVITY ORDERS: Other, see below WOUND/INCISION CARE: Keep wound elevated, Do not change dressing CHECKS AFTER DISCHARGE: CHECKS AFTER DISCHARGE: Check blood press - daily TREATMENT/EQUIPMENT ORDERS: RESPIRATORY EQUIPMENT NEEDED: Oxygen DISCHARGE MEDICATIONS: Home Meds Reported Medications Timolol Maleate (Timolol Maleate) 5 Ml Drops, 1 BID for 08/16/19 Brinzolamide/Brimonid Tart (SIMBRINZA 1%-0.2% EYE DROPS) 8 Ml Drops.susp, 0.2 BID for 08/16/19 Hydrochlorothiazide (Hydrochlorothiazide) 25 Mg Tablet, 25 DAILY for 08/16/19 Latanoprost (LATANOPROST) 2.5 Ml Drops, 2.5 HS for 08/16/19 Aspirin (ASPIRIN) 325 Mg Tablet, 650 MG PO PRN for HEADACHE, TAB 09/11/17 Losartan Potassium (LOSARTAN POTASSIUM) 100 Mg Tablet, 100 MG PO DAILY for blood pressure LAST DOSE GIVEN: DATE: 09/14/15 TIME: 09 AM NEXT DOSE DUE: DATE: 09/15/15 TIME: 09 AM 05/02/13 Amlodipine Besylate (NORVASC) 10 Mg Tablet, 10 MG PO DAILY for blood pressure LAST DOSE GIVEN: DATE: 09/14/15 TIME: 09 AM NEXT DOSE DUE: DATE: 09/15/15 TIME: 09 AM 05/02/13 CRISELDA DAVIS MD Aug 24, 2019 12:10
== END 2019-08-24 15:00 | disposition short-term general hospital (02) | DRG 201 ==
LOC: ER 13:51 → 2 NORTH 15:52
PROVIDERS: ADMIT Internal Medicine; ATTEND Internal Medicine
PROC: 0W9930Z Drainage of Right Pleural Cavity with Drainage Device, Percutaneous Approach (ICD-10-PCS; principal; 2019-08-21)
DX: J93.83 Other pneumothorax (principal); F17.201 Nicotine dependence, unspecified, in remission; I10 Essential (primary) hypertension; J44.9 Chronic obstructive pulmonary disease, unspecified; J93.82 Other air leak; Z86.73 Personal history of transient ischemic attack (TIA), and cerebral infarction without residual deficits; Z88.0 Allergy status to penicillin
CPT/HCPCS: 36415; 71045; 71250; 80053; 81001; 83880; 84484; 85025; 87804; 93005; J1885; J2175; J2250; J3490; G0378

== ENCOUNTER → 2020-10-15 | Outpatient (CLI) | payer OTHER ==
[~2020-10-15] MED LIST changes: +BRIN8DRO; +HYDR25TA10; +LATA2.5D3; +TIMO5DRO5; -WARF-78 PO; +WARF5TAB2 PO
--- NOTE | 2020-10-15 12:31 | KCIC ---
EXAM: Bilateral knees, 3 views. HISTORY: Pain. COMPARISON: 03/26/2016. FINDINGS: 3 views of both knees are obtained. There is moderate left and mild right lateral compartme nt joint space narrowing and spurring. There is mild left medial and bilateral patellofemoral compart ment spurring. There are small joint effusions. There is no fracture, dislocation or subacute fixatio n. There are vascular calcifications. IMPRESSION: 1. Moderate left and mild right lateral compartment predominant osteoarthritis of both knees with sma ll joint effusions. 2. No acute osseous finding. Electronically signed by: Acacia Miller MD (10/15/2020 12:29 PM) [id number]
== END ==
LOC: KCIC 10:19
PROVIDERS: ATTEND Family Medicine
DX: M17.0 Bilateral primary osteoarthritis of knee (principal)
CPT/HCPCS: 73562-50